=== PATIENT | female | born 1945 | race Caucasian/White ===

== ENCOUNTER 2022-02-28 11:46 | Inpatient (IN) | payer OTHER, MEDICARE ==
--- OUTSIDE RECORDS SUMMARY | 2022-02-28 11:50 | XMS REPORT | Continuity of Care Document ---
:1945 Author Organization [facility] t Address [address] [place] [address] Care Team Providers Name Role Phone REJI HARTLEY Primary Care Physician Unavailable Josefa Torres RN Attending Clinician Unavailable Anu Rodgers Attending Clinician Glenna Cee DO Attending Clinician GLENNA CEE Attending Clinician Unavailable REJI HARTLEY Attending Clinician Unavailable Glenna Cee DO Admitting Clinician GLENNA CEE Admitting Clinician Unavailable REJI HARTLEY Admitting Clinician Unavailable Payers Payer Name Policy Type Policy Number Effective Date Expiration Date S ource Problems Condition Condition Condition Status Onset Resolution Last Treating Co mments Source Name Details Category Date Date Treatment Clinician Date COVID-19 COVID-19 Disease Active Unive rs 1-04 ity of 00:00: [place] 00 Medical Branch Gastroente Gastroente Disease Active 2016-02 U nivers ritis ritis 2-17 ity of 00:00: [place] 00 Medical Branch CAD CAD Disease Active 2016-02 Univers (coronary (coronary 2-17 ity of artery artery 00:00: [place] disease) disease) 00 Medica l Branch LBBB (left LBBB (left Disease Active 2016-02 U nivers bundle bundle 2-17 ity of branch branch 00:00: [place] block) block) 00 Medical Branch Troponin I Troponin I Disease Active 2016-02 U kenyaers above above 2-17 [place] of reference [place] range range 00 [place] Hypokalemi Hypokalemi Disease Active 2016-02 U nivers a a 2-16 ity of 00:00: [place] 00 Medical Branch Allergies, Adverse Reactions, Alerts Allergy Allergy Status Severity Reaction(s) Onset Inactive Treating Comm ents Source Name Type Date Date Clinician Lisa Propensi Active Other - See 2016-02 Hurts Un mikel ty to comments 2-16 stomach ity of adverse 00:00: [place] reaction 00 Medical s Branch CODEINE DRUG Active Other-Cmnt 2016-02 Unive rs INGREDI 2-16 ity of 00:00: [place] 00 Medical Branch Social History Social Habit Start Date Stop Date Quantity Comments Source History SDOH University o f Alcohol Std Drinks [place] [facility] History SDOH University o f Alcohol Binge [place] [facility] al [facility] History SDOH Social Unive rsity of Connections Get [place] Med ical Together Branch History SDOH Social Unive rsity of Connections [facility] [place] [facility] History SDOH Social Unive rsity of Connections [place] [facility] Membership Branch History SDOH Social Unive rsity of Connections [place] [facility] Meetings Branch History SDOH 2022-02-26 2022-02-26 1 University o f Alcohol Frequency 00:00:00 00:00:00 [place] M edical Branch History SDOH Social 2022-02-26 2022-02-26 5 Unive rsity of Connections Phone 00:00:00 00:00:00 [place] M edical Branch History SDOH Social 2022-02-26 2022-02-26 4 Unive rsity of Connections Living 00:00:00 00:00:00 [place] [facility] History SDOH 2022-02-26 2022-02-26 7 University o f Physical Activity 00:00:00 00:00:00 [place] M edical DPW Branch History SDOH 2022-02-26 2022-02-26 2 University o f Physical Activity 00:00:00 00:00:00 [place] M edical MPS Branch History SDOH 2022-02-26 2022-02-26 5 University o f Financial 00:00:00 00:00:00 [place] [facility] History SDOH Food 2022-02-26 2022-02-26 1 Univers ity of Worry 00:00:00 00:00:00 [place] [facility] History SDOH Food 2022-02-26 2022-02-26 1 Univers ity of Scarcity 00:00:00 00:00:00 [place] [facility] History SDOH 2022-02-26 2022-02-26 2 University o f Transport Med 00:00:00 00:00:00 [place] Medic al Branch History SDOH 2022-02-26 2022-02-26 2 University o f Transport Non-Med 00:00:00 00:00:00 [place] M edical Branch Exposure to 2022-02-10 2022-02-20 Not sure [facility] SARS-CoV-2 (event) 00:00:00 16:07:00 [facility] Alcohol intake 2022-02-20 2022-02-20 Current University of 00:00:00 00:00:00 non-drinker of [facility] alcohol Branch (finding) Sex Ass[birth year] Universit y of 00:00:00 00:00:00 [facility] Smoking Status Start Date Stop Date Source Never smoked tobacco [facility] Medications Ordered Filled Start Stop Current Ordering Indication Dosage Frequency Signature Comments Components Source Medication Medication Date Date Medication? Clinician (SIG) Name Name cholecalcif 2022- Yes [id number] 1000U Take 1 Univers anu, 02-27 tablet by ity of vitamin D3, 00:00: 05:59 mouth in [place] 25 mcg 00 :00 the Medical (1,000 morning Branch unit) for 14 tablet days. cholecalcif 2022- Yes [id number] 1000U Take 1 Univers anu, 02-27 tablet by ity of vitamin D3, 00:00: 05:59 mouth in [place] 25 mcg 00 :00 the Medical (1,000 morning Branch unit) for 14 tablet days. JOHNATHON Yes Take by Univers ASPIRIN 1-10 mouth ity of ORAL 13:50: daily. [address] clopidogrel Yes 75mg Take 75 mg Univers 75 mg 1-10 by mouth ity of tablet 13:50: daily. [address] amitriptyli Yes 1 tablet Un mikel ne 25 mg 1-10 ity of tablet 13:50: [address] magnesium Yes 400mg Take 400 Uni vers oxide 400 1-10 mg by ity of mg (241.3 13:50: mouth. [place] mg 49 Medical magnesium) Branch tablet losartan-hy Yes losartan Un mikel drochloroth 1-10 100 ity of iazide 13:50: mg-hydroch [place] 100-25 mg 49 lorothiazi Medi corey per tablet de 25 mg Branc h tablet Take 1 tablet every day by oral route. metoprolol Yes metoprolol U nivers succinate 1-10 succinate ity o f 100 mg CSpX 13:50: ER 100 mg [place] 49 capsule Medical sprinkle, Branch ext. release 24 hr Take 1 capsule every day by oral route. nitroglycer Yes nitroglyce Univers in 0.4 mg 1-10 rin 0.4 mg ity of sublingual 13:50: sublingual [place] tablet [address] Branch TABLET UNDER THE TONGUE NEEDED, DIRECTED KCL 20 mEq Yes potassium Un mikel tablet 1-10 chloride ity of 13:50: ER 20 mEq [place] [id number] tablet,ext Medical ended Branch release(pa rt/cryst) TAKE 2 TABLETS(40 MEQ) BY MOUTH DAILY. levothyroxi Yes levothyrox Univers ne 25 mcg 1-10 ine 25 mcg ity of tablet 13:50: tablet [place] [address] Take 1 Medical tablet Branch every day by oral route for 30 days. lovastatin Yes 1 tablet Uni vers 40 mg 1-10 with a ity of tablet 13:50: meal [address] JOHNATHON Yes Take by Univers ASPIRIN 1-10 mouth ity of ORAL 13:50: daily. [address] clopidogrel Yes 75mg Take 75 mg Univers 75 mg 1-10 by mouth ity of tablet 13:50: daily. [address] amitriptyli Yes 1 tablet Un mikel ne 25 mg 1-10 ity of tablet 13:50: [address] magnesium Yes 400mg Take 400 Uni vers oxide 400 1-10 mg by ity of mg (241.3 13:50: mouth. [place] mg 49 Medical magnesium) Branch tablet losartan-hy Yes losartan Un mikel drochloroth 1-10 100 ity of iazide 13:50: mg-hydroch [place] 100-25 mg 49 lorothiazi Medi corey per tablet de 25 mg Branc h tablet Take 1 tablet every day by oral route. metoprolol Yes metoprolol U nivers succinate 1-10 succinate ity o f 100 mg CSpX 13:50: ER 100 mg [place] 49 capsule Medical sprinkle, Branch ext. release 24 hr Take 1 capsule every day by oral route. nitroglycer Yes nitroglyce Univers in 0.4 mg -10 rin 0.4 mg ity of sublingual 13:50: sublingual [place] tablet [address] 1 Branch TABLET UNDER THE TONGUE NEEDED, DIRECTED KCL 20 mEq Yes potassium Un mikel tablet -10 chloride ity of 13:50: ER 20 mEq [place] 49 tablet,ext Medical ended Branch release(pa rt/cryst) TAKE 2 TABLETS(40 MEQ) BY MOUTH DAILY. levothyroxi Yes levothyrox Univers ne 25 mcg -10 ine 25 mcg ity of tablet 13:50: tablet [place] 49 Take 1 Medical tablet Branch every day by oral route for 30 days. lovastatin Yes 1 tablet Uni vers 40 mg -10 with a ity of tablet 13:50: meal [place] 49 Medical Branch ascorbic 2022- Yes [id number] 500mg Take 1 Univers acid, 02-26-25 tablet by ity of vitamin C, 00:00: 05:59 [place] 500 mg 00 :00 the Medical tablet morning Branch and 1 tablet in the evening. Do all this for 14 days. zinc 2022- Yes [id number] 50mg Take 1 Unive rs sulfate 50 02-26-25 capsule by it y of mg zinc 00:00: 05:59 mouth in [place] (220 mg) 00 :00 the Medical capsule morning Branch for 14 days. ascorbic 2022- Yes [id number] 500mg Take 1 Univers acid, 02-26-25 tablet by ity of vitamin C, 00:00: 05:59 [place] 500 mg 00 :00 the Medical tablet morning Branch and 1 tablet in the evening. Do all this for 14 days. zinc 2022- Yes [id number] 50mg Take 1 Unive rs sulfate 50 -11 17-25 capsule by it y of mg zinc 00:00: 05:59 mouth in [place] (220 mg) 00 :00 the Medical capsule morning Branch for 14 days. KCL 2022-0 2023- No 40meq 40 mEq, Univers (KLOR-CON 02-24- Oral, ity of M20) tablet 16:15: 17:39 ONCE, 1 [place] 40 mEq 00 :00 dose, On Medical 02/24/22 Branch at 1015, Routine melatonin 2022-0 Yes 3mg 3 mg, Univers (MELATIN) 02-24 Oral, QHS, ity of tablet 3 mg 03:00: First dose [place] 00 on [facility] Medical 02/23/22 at Branch 2100, Until Discontinu ed, Routine dexamethaso 2022-0 Yes 6mg 6 mg, IV Un mikel ne sod phos 02-23 Push, ity of PF 13:55: DAILY, [place] injection 6 35 First dose Me dical mg (after Branch last modificati on) on [facility] 02/23/22 at 0900, Until Discontinu ed, 1 mL traZODone 0 Yes 50mg 50 mg, Univer s (DESYREL) 02-23 Oral, QHS, ity of tablet 50 03:00: First dose [place] mg 00 on Fri Medical 02/22/22 at Branch 2100, Until Discontinu ed, Routine amitriptyli 2022-0 Yes 25mg 25 mg, Univ ers ne (ELAVIL) 06 Oral, QHS, it y of tablet 25 03:00: First dose [place] mg 00 on [facility] 02/21/22 at Branch 2100, Until Discontinu ed, Routine proMETHazin 0 Yes 12.5mg 12.5 mg, Univers e 02-21 IV ity of (PHENERGAN) 23:37: Piggyback, [place] 12.5 mg in 38 Q4HPRN, Medica l NaCl 0.9% Starting Branch (NS) 50 mL on [facility] IV 02/21/22 at piggyback 1737, Until Discontinu ed, Routine, N/V unresponsi ve to Ondansetro n losartan 2022-0 Yes 100mg 100 mg, Unive rs (COZAAR) 05 Oral, ity of tablet 100 15:00: DAILY, [place] mg 00 First dose Medical on [facility] Branch 02/21/22 at 0900, Until Discontinu ed, Routine clopidogreL 3-0 Yes 75mg 75 mg, Univ ers (PLAVIX) 75 1-05 Oral, ity of mg tablet 15:00: DAILY, [place] 75 mg 00 First dose Medical on [facility] Branch 02/21/22 at 0900, Until Discontinu ed, Routine cholecalcif 3-0 Yes 1000U 1,000 Univ ers anu 1-05 Units, ity of (vitamin 15:00: Oral, [place] D3) tablet 00 DAILY, Medical 1,000 Units First dose Br anch on [facility] 02/21/22 at 0900, Until Discontinu ed, Routine enoxaparin 2022-0 Yes 40mg 40 mg, Unive rs (LOVENOX) -05 Subcutaneo ity of injection 15:00: us, DAILY, [place] 40 mg 00 First dose Medical (after Branch last modificati on) on [facility] 02/21/22 at 0900, Until Discontinu ed, Routine metoprolol 2022-0 Yes 100mg 100 mg, Uni vers succinate 1-05 Oral, ity of XL (TOPROL 15:00: DAILY, [place] XL) tablet 00 First dose Med ical 100 mg on [facility] Branch 02/21/22 at 0900, Until Discontinu ed hydroCHLORO 2022-0 Yes 25mg 25 mg, Univ ers thiazide 1-05 Oral, ity of (ESIDRIX) 15:00: DAILY, [place] tablet 25 00 First dose Medi corey mg on [facility] Branch 02/21/22 at 0900, Until Discontinu ed, Routine iopamidol 2022-0 2023- No [id number] 100mL 100 mL, Univers (ISOVUE -05 01-05 Intravenou ity o f 370-500 mL) 14:15: 14:15 s, ONCE, 1 [place] injection 00 :00 dose, On Medica l 100 mL [facility] 02/21/22 Branch at 0815, Routine zinc 2022-0 Yes 50mg 50 mg, Univers sulfate 1-05 Oral, TID, ity of (ORAZINC) 14:00: First dose [place] capsule 50 00 on [facility] Medical mg 02/21/22 at Branch 0800, Until Discontinu ed, Routine ascorbic 3-0 Yes 500mg 500 mg, Unive rs acid 1-05 Oral, BID, ity of (vitamin C) 14:00: First dose [place] (VITAMIN C) 00 on [facility] Medica l tablet 500 02/21/22 at Bran ch mg 0800, Until Discontinu ed, Routine KCL 2022-0 2022- No 40meq 40 mEq, Univers (KLOR-CON 02-21-05 Oral, ity of M20) tablet 12:45: 12:49 ONCE, 1 [place] 40 mEq 00 :00 dose, On Medical Fri02/21/22 Branch at 0645, Routine NaCl 0.9% 2022- No 1000mL at 100 Uni vers (NS) IV 02-21-05 mL/hr, IV ity of infusion 12:30: 15:18 Infusion, [place] 1,000 mL 00 :15 ONCE, 1 Medical dose, On Branch Fri02/21/22 at 0630, Routine levothyroxi 0 Yes 25ug 25 mcg, Uni vers ne 05 Oral, ity of (SYNTHROID) 12:00: QAM-0600, [place] tablet 25 00 First dose Medi corey mcg on Fri Branch 02/21/22 at 0600, Until Discontinu ed, Routine guaiFENesin 0 Yes 400mg 400 mg, Un mikel (FENESIN 02-21 Oral, ity of IR) tablet 08:51: Q4HPRN, [place] 400 mg 09 Starting Medical on Fri Branch 02/21/22 at 0251, Until Discontinu ed, Routine, Congestion /Allergies , Cough dexamethaso 2022- No 6mg 6 mg, IV U nivers ne sod phos 02-21-07 Piggyback, i ty of PF 06:45: 13:55 DAILY, [place] injection 6 00 :11 First dose Me dical mg on Fri Branch 02/21/22 at 0045, Until Discontinu ed, 1 mL ondansetron 2022-0 Yes 4mg 4 mg, Slow Univers (ZOFRAN 05 IV Push, ity of (PF)) 04:37: Q6HPRN, [place] injection 4 37 Starting Medi corey mg on Fri02/20/22 at 2237, Until Discontinu ed, Routine, Nausea and Vomiting (N/V) acetaminoph Yes 650mg 650 mg, Un mikel en 05 Oral, ity of (TYLENOL) 04:37: Q6HPRN, [place] tablet 650 25 Starting Medic al mg on Fri Branch 02/20/22 at 2237, Until Discontinu ed, Routine, Pain (scale 1-3) nitroglycer Yes .4mg 0.4 mg, Uni vers in 02-21 Sublingual ity of (NITROSTAT) 04:36: , Q5MIN [place] sublingual 10 PRN, Medical tablet 0.4 Starting Branc h mg on Fri02/20/22 at 2236, Until Discontinu ed, Routine, Chest pain NaCl 0.9% 2022- No 1000mL at 999 Uni vers (NS) bolus 02-20-05 mL/hr, ity of infusion 23:45: 00:03 1,000 mL, [place] 1,000 mL 00 :00 IV Medical Infusion, Branch ONCE, 1 dose, On Fri02/20/22 at 1745, STAT lovastatin 2022- No 40mg Take 40 mg Univers 40 mg 02-20 by mouth ity of tablet 22:38: 00:00 once now. [place] 40 :00 Medical Branch MAGNESIUM 2022- No 400mg Take 400 Un mikel OXIDE 02-20-04 mg by ity of (MAG-OXIDE 22:38: 00:00 mouth [place] ORAL) 40 :00 daily. Medical Branch LEVOTHYROXI No .025mg Take 0.025 Univers NE SODIUM 02-20-04 mg by ity of (LEVOTHYROX 22:38: 00:00 [place] INE ORAL) 40 :00 daily. Medical Branch AMITRIPTYLI 2022- No 25mg Take 25 mg Univers NE HCL 02-20-04 by mouth 3 ity of (AMITRIPTYL 22:38: 00:00 (three) [place] INE ORAL) 40 :00 times Medical daily. Branch metoprolol 2022- No 100mg Take 100 U nivers tartrate 02-20-04 mg by ity of 100 mg 22:38: 00:00 mouth 2 [place] tablet 40 :00 (two) Medical times Branch daily. KCL 20 mEq 2022- No 1 tablet Un mikel tablet 1-04 02-20 ity of 22:38: 00:00 [place] 40 :00 [facility] Immunizations Ordered Filled Immunization Date Status Comments [facility]ourc e [facility] Completed University of 00:00:00 [facility] Branch Remdesivir 2022-02-25 Completed [facility] [place] [facility] Com[facility] 00[facility]00:00 [facility] [place] [facility] 2022-02-23 [facility] [place] [facility] 2022-02-22 Completed [facility] 00:00[facility]00 [facility] [place] [facility] 2022-02-22 Completed [facility] 00:00[facility]00 [facility] [place] [facility] 2022-02-21 Completed University [facility] 00:00[facility]00 [facility] [place] [facility] 2022-02-21 Completed University of 00:00:00 [facility] Vital Signs Vital Name Observation Time Observation Value Comments Source Systolic blood 2022-02-26 18:00:00 118 mm[Hg] [facility] Diastolic blood 2022-02-26 18:00:00 60 mm[Hg] [facility] Heart rate 2022-02-26 18:00:00 62 /min [facility] Body temperature 2022-02-26 18:00:00 36.83 Ira[place] [facility] Respiratory rate 2022-02-26 18:00:00 16 /min [facility] Oxygen saturation in 2022-02-26 18:00:00 93 /min [facility] Arterial blood by [facility] Pulse oximetry Branch Body weight 2022-02-25 10:00:00 74.481 kg [facility] BMI 2022-02-25 10:00:00 29.09 kg/m2 [facility] Procedures Procedure Date / Time Performing Clinician Source Performed BASIC METABOLIC PANEL 2022-02-26 10:56:00 [facility] (NA, K, CL, CO2, GLUCOSE, Medica l Branch BUN, CREATININE, CA) URINALYSIS 2022-02-24 22:45:00 Meryl [facility] URINE CULTURE 2022-02-24 22:45:00 Meryl [facility] BASIC METABOLIC PANEL 2022-02-23 11:16:00 Glenna Cee [facility] (NA, K, CL, CO2, GLUCOSE, Medica l Branch BUN, CREATININE, CA) CBC WITH DIFF 2022-02-23 11:16:00 Glenna Cee [facility] MAGNESIUM 2022-02-22 10:17:00 Meryl [facility] BASIC METABOLIC PANEL 2022-02-22 10:17:00 Glenna Cee [facility] (NA, K, CL, CO2, GLUCOSE, Medica l Branch BUN, CREATININE, CA) CT ANGIOGRAM CHEST 2022-02-21 13:21:00 [facility] 2022[facility]02-21 10:[facility] 2022-02-21 10:14:00 [facility] TROPONIN I 2022-02-21 10:10:00 [facility] BASIC METABOLIC PANEL 2022-02-21 10:10:00 [facility] (NA, K, CL, CO2, GLUCOSE, Medica l Branch BUN, CREATININE, CA) CBC WITH DIFF 2022-02-21 10:10:00 [facility] D-DIMER 2022-02-21 10:10:00 [facility] CLOSTRIDIUM DIFFICILE 2022-02-21 10:10:00 [facility] BLOOD CULTURE SCREEN 2022-02-20 23:10:00 Anu [facility] XR CHEST 1 VW 2022-02-20 22:52:53 Anu Earl [facility] RAPID INFLUENZA A/B 2022-02-20 22:40:00 Anu Earl [facility] COVID-19 (ID NOW RAPID 2022-02-20 22:40:00 Anu Earl [facility] TESTING) Medical Branch LAB ONLY COVID 2022-02-20 22:40:00 Anu Earl [facility] INTERPRETATION [facility] BLOOD CULTURE SCREEN 2022-02-20 22:38:00 Anu Earl [facility] COMP. METABOLIC PANEL 2022-02-20 22:38:00 Anu Earl [facility] ([id number]) Medical Branch CBC WITH DIFF 2022-02-20 22:38:00 Anu Earl [facility] BLOOD CULTURE WORKUP 2022-02-20 22:38:00 Anu Earl [facility] GRAM POSITIVE BLOOD 2022-02-20 22:38:00 Anu Earl [facility] PATHOGENS DNA [facility] Branch PROBE-ANAEROBIC LACTIC ACID WHOLE BLOOD 2022-02-20 22:37:00 Anu Earl [facility] HB ECG ROUTINE & RHYTHM 2022-02-20 22:19:[address] [facility] NOTICE OF PRIVACY 2022-02-20 22:09:04 Doctor Unassigned, [facility] PRACTICES [place] [facility] Encounters Start End Encounter Admission Attending Care Care Encounter Source Date/Time Date/Time Type Type Clinicians Facility Department ID 2022-02-27 2022-02-27 Transition FLEX Torres [id number] Univers 00:00:00 00:00:00 of Care Josefa MADERAY [id number] it y of ALEXANDRA [id number] [facility] [id number] [facility] 403 Branch 2022-02-20 2022-02-26 Hospital Anu Earl [facility] [id number] Univers 16:13:00 13:50:00 Encounter Glenna Cee [id number] ity of YADIRA [id number] [facility] [id number] [place] [id number] Branch 2022-02-20 2022-02-26 Inpatient X [facility]L [facility] [id number] Univers 16:13:00 13:50:00 GLENNA killian [facility] 2016-09-13 2016-09-13 Outpatient [facility] [id number] 05:35:00 05:35:00 [facility] Results Test Description Test Time Test Comments Results Result Comments Source BLOOD CULTURE SCREEN 2022-02-26 02:51:21 Test Item Value Reference Range Interpretation Comme nts Blood Culture-Aerobic (test No organisms isolated No growth Previous preliminary code = 36370-7) verified res ult was Culture In Prog ress on 02/20/2022 at 200 1 CSTPrevious pre liminary verified result was No growth at 24 ho urs on 02/21/2022 at 170 1 CSTPrevious pre liminary verified result was Culture In Prog ress on 02/21/2022 at 180 4 ECONOMICS DEPARTMENT CHAIR Blood Culture-Anaerobic Culture positive. See No growth AA Previous preliminary (test code = 40143-8) Blood Culture Workup verified result was for additional Culture In Pr ogress on information. 02/20/2022 at 200 1 CSTPrevious pre liminary verified result was No growth at 24 ho urs on 02/21/2022 at 170 1 ECONOMICS DEPARTMENT CHAIR Lab Interpretation (test Abnormal code = 75217-1) [facility] [id number] 00:01:47 Test Item Value Reference Range Interpretation Comments Blood Culture-Aerobic No organisms No growth Previo us (test code = 55360-2) isolated prelim inary verified result was Culture In Progress on 02/20/2022 at 210 1 CSTPrevious preliminary verified result was No growth a t 24 hours on 02/21/2022 at 180 1 CSTPrevious preliminary verified result was No growth a t 48 hours on 02/22/2022 at 180 1 CSTPrevious preliminary verified result was No growth a t 72 hours on 02/23/2022 at 180 1 ECONOMICS DEPARTMENT CHAIR Blood No organisms No growth Previous Culture-Anaerobic isolated preliminar y (test code = 75116-1) verifi ed result was Culture In Progress on 02/20/2022 at 210 1 CSTPrevious preliminary verified result was No growth a t 24 hours on 02/21/2022 at 180 1 CSTPrevious preliminary verified result was No growth a t 48 hours on 02/22/2022 at 180 1 CSTPrevious preliminary verified result was No growth a t 72 hours on 02/23/2022 at 180 1 ECONOMICS DEPARTMENT CHAIR Lab Interpretation Normal (test code = 63705-4) [facility] PATHOGENS DNA [id number] 12:03:26 Test Item Value Reference Range Interpretation Comments Coagulase Negative Positive Negative, See A Staphylococcus (test Comment/Narrative code = 99673-6) PARRIS (test code = PARRIS) Coagulase negative Staphylococcus (CoNS) detected by DNA probe. ?CoNS often contaminate blood cultures from skin colonization during phlebotomy. ?Preferred management is to repeat blood cultures, and monitor off antibiotics. ?Contamination is suggested by culture growth after 48 hours, or growth in single culture (i.e., one of two sets). ?True bacteremia is suggested by the fever, hypotension, and leukocytosis that are not explained by an alternative infection, or indwelling foreign devices that appear infected (catheters, lines, or prostheses). Consider Infectious Diseases consultation if differentiation of CoNS bacteremia from contamination is uncertain. If clinical context suggests true bacteremia, preferred therapy is vancomycin. Please contact the Antimicrobial Stewardship Program with questions.Pager: ?[phone] Testing included eleven identification and three resistance marker targets. Lab Interpretation Abnormal (test code = 80538-6) [facility]OLIC PANEL ([id number])2022-02-20 23:02:28 Test Item Value Reference Range Interpretation Comments NA (test code = 136 mmol/L 135-145 5846861558) K (test code = 3.6 mmol/L 3.5-5.0 8216285523) CL (test code = 100 mmol/L 98-108 4576332204) CO2 TOTAL (test code = 25 mmol/L 23-31 6132581820) AGAP (test code = 2-16 3611006992) BUN (test code = 16 mg/dL 7-23 5136273587) GLUCOSE (test code = 126 mg/dL 70-110 H 2388434912) CREATININE (test code = 1.24 mg/dL 0.50-1.04 H 7529442840) TOTAL BILI (test code = 0.6 mg/dL 0.1-1.7 4875308848) CALCIUM (test code = 9.0 mg/dL 8.6-10.6 4733837639) T PROTEIN (test code = 7.4 g/dL 6.3-8.2 7412338293) ALBUMIN (test code = 4.5 g/dL 3.5-5.0 6690542296) ALK PHOS (test code = 95 U/L 34-122 5961774111) ALTv (test code = 31 U/L 5-35 1742-6) AST(SGOT) (test code = 56 U/L 13-40 H 6196775183) eGFR (test code = mL/min/1.73m2 5018700214) PARRIS (test code = PARRIS) Association of Glomerular Filtration Rate (GFR) and Staging of Kidney Disease* + --+ --+ ------+| GFR (mL/min/1.73 m2) ?| With Kidney Damage ?| ?Without Kidney Damage+ --------+ --------+ +| ?>90 ?| ?Stage one ?| ? Normal ?+ ---+ ---+ -------+| ?60-89 ?| ?Stage two ?| ? Decreased GFR ? + --+ --+ ------+| ?30-59 ?| ?Stage three ?| ? Stage three ? + --+ --+ ------+| ?15-29 ?| ?Stage four ? | ? Stage four ?+ ---+ ---+ -------+| ?<15 (or dialysis) ? ?| ?Stage five ? | ? Stage five ?+ ---+ ---+ -------+ *Each stage assumes the associated GFR level has been in effect for at least three months. ?Stages 1 to 5, with or without kidney disease, indicate chronic kidney disease. Notes: Determination of stages one and two (with eGFR >59mL/min/1.73 m2) requires estimation of kidney damage for at least three months as defined by structural or functional abnormalities of the kidney, manifested by either:Pathological abnormalities or Markers of kidney damage (including abnormalities in the composition of the blood or urine or abnormalities in imaging tests). Lab Interpretation Abnormal (test code = 31924-6) [facility] WITH [id number] 22:58:07 Test Item Value Reference Range Interpretation Comments WBC (test code = See_Comment [Automated 6690-2) message] The sy stem which generated this result transmitted reference range : 4.30 - 11.10 10*3/?L. The reference range was not used to interpret this result as normal/abnormal . RBC (test code = See_Comment L [Automated 789-8) message] The sy stem which generated this result transmitted reference range : 3.93 - 5.25 10*6/?L. The reference range was not used to interpret this result as normal/abnormal . HGB (test code = 12.4 g/dL 11.6-15.0 718-7) HCT (test code = 37.6 % 35.7-45.2 4544-3) MCV (test code = 96.7 fL 80.6-95.5 H 787-2) MCH (test code = 31.9 pg 25.9-32.8 785-6) MCHC (test code = 33.0 g/dL 31.6-35.1 786-4) RDW-SD (test code = 48.5 fL 39.0-49.9 16133-8) RDW-CV (test code = 13.6 % 12.0-15.5 788-0) PLT (test code = See_Comment [Automated 777-3) message] The sy stem which generated this result transmitted reference range : 166 - 358 10*3/ ?L. The reference r teresa was not used to interpret this result as normal/abnormal . MPV (test code = 8.3 fL 9.5-12.9 L 41594-4) NRBC/100 WBC (test See_Comment [Automat ed code = [id number]) message] The system which generated this result transmitted reference range : 0.0 - 10.0 /100 WBCs. The refer ence range was not u sed to interpret th is result as normal/abnormal . NRBC x10^3 (test code See_Comment [Auto mated = [id number]) message] The s ystem which generated this result transmitted reference range : 10*3/?L. The reference range was not used to interpret this result as normal/abnormal . GRAN MAT (NEUT) % 64.0 % (test code = 770-8) IMM GRAN % (test code 0.40 % = [id number]) LYMPH % (test code = 21.4 % 736-9) MONO % (test code = 13.2 % 5905-5) EOS % (test code = 0.4 % 713-8) BASO % (test code = 0.6 % 706-2) GRAN MAT x10^3(ANC) 3.29 10*3/uL 1.88-7.09 (test code = [id number]) IMM GRAN x10^3 (test 0.00-0.06 code = 8599042727) LYMPH x10^3 (test code 1.10 10*3/uL 1.32-3.29 L = 731-0) MONO x10^3 (test code 0.68 10*3/uL 0.33-0.92 = 742-7) EOS x10^3 (test code = 0.03-0.39 L 711-2) BASO x10^3 (test code 0.03 10*3/uL 0.01-0.07 = 704-7) Lab Interpretation Abnormal (test code = 75873-1) [facility] [id number] 10:58:48 Test Item Value Reference Range Interpretation Comments Sodium Level (test code = Sodium 142.0 mmol/L 135.0-145.0 Level) Potassium Level (test code = 3.3 mmol/L 3.5-5.1 L Potassium Level) Chloride Level (test code = 100 mmol/L 98-105 Chloride Level) CO2 (test code = CO2) 27 mmol/L 22-29 Anion Gap (test code = Anion 15 mmol/L 7-16 Gap) BUN (test code = BUN) 17.20 mg/dL 8.00-23.00 Creatinine Level (test code = 1.00 mg/dL 0.50-0.90 H Creatinine Level) BUN/Creat Ratio (test code = 17 N BUN/Creat Ratio) Glucose Level (test code = 101 mg/dL 70-115 Glucose Level) Calcium Level (test code = 9.6 mg/dL 8.3-10.5 Calcium Level) Alk Phos (test code = Alk Phos) 126 U/L 35-104 H Bilirubin Total (test code = 0.4 mg/dL 0.1-0.9 Bilirubin Total) Albumin Level (test code = 4.5 g/dL 3.5-5.2 Albumin Level) Protein Total (test code = 7.9 g/dL 6.4-8.3 Protein Total) ALT (test code = ALT) 27 U/L 1-33 AST (test code = AST) 37 U/L 1-32 H Globulin (test code = Globulin) 3.4 g/dL 2.9-3.1 H A/G Ratio (test code = A/G 1.3 ratio N Ratio) Comprehensive Metabolic [id number] 10:58:48 Test Item Value Reference Range Interpretation Comments Sodium Level (test 142.0 mmol/L 135.0-145.0 code = Sodium Level) Potassium Level 3.3 mmol/L 3.5-5.1 L (test code = Potassium Level) Chloride Level (test 100 mmol/L 98-105 code = Chloride Level) CO2 (test code = 27 mmol/L 22-29 CO2) Anion Gap (test code 15 mmol/L 7-16 = Anion Gap) BUN (test code = 17.20 mg/dL 8.00-23.00 BUN) Creatinine Level 1.00 mg/dL 0.50-0.90 H (test code = Creatinine Level) BUN/Creat Ratio 17 N (test code = BUN/Creat Ratio) Glucose Level (test 101 mg/dL 70-115 code = Glucose Level) Calcium Level (test 9.6 mg/dL 8.3-10.5 code = Calcium Level) Alk Phos (test code 126 U/L 35-104 H = Alk Phos) Bilirubin Total 0.4 mg/dL 0.1-0.9 (test code = Bilirubin Total) Albumin Level (test 4.5 g/dL 3.5-5.2 code = Albumin Level) Protein Total (test 7.9 g/dL 6.4-8.3 code = Protein Total) ALT (test code = 27 U/L 1-33 ALT) AST (test code = 37 U/L 1-32 H AST) Globulin (test code 3.4 g/dL 2.9-3.1 H = Globulin) A/G Ratio (test code 1.3 ratio N = A/G Ratio) eGFR AA (test code = >60 N eGFR (e stimated eGFR AA) mL/min/1.73 m2 Glomerular Filtration Rate ) is an estimated va lue, calculated from the patient's serum creatinine usin g the MDRD equation. It is NOT the patient 's actual GFR. The eGFR provides a more clinically usef ul measure of kidn ey disease than se rum creatinine alone.This calculation nila es sex and race in to account, if the information is provided. If th e race is not provided, and t he patient is -Maia n, multiply by 1.2 12. If sex is not provided, and t he patient is fema le, multiply by 0.7 42. Results for pat ients <18 years of ag e have not been validated by th e MDRD study and should be interpreted wit h caution. eGFR R esult Interpretation: eGFR > or = 60 is in the Normal RangeeGF R < 60 may mean kid andrew diseaseeGFR < 1 5 may mean kidney failure Rang es recommended by the National Kidney Foundation, http://nkdep.ni h.gov Comprehensive Metabolic [id number] 10:58:48 Test Item Value Reference Range Interpretation Comments Sodium Level (test 142.0 mmol/L 135.0-145.0 code = Sodium Level) Potassium Level 3.3 mmol/L 3.5-5.1 L (test code = Potassium Level) Chloride Level (test 100 mmol/L 98-105 code = Chloride Level) CO2 (test code = 27 mmol/L 22-29 CO2) Anion Gap (test code 15 mmol/L 7-16 = Anion Gap) BUN (test code = 17.20 mg/dL 8.00-23.00 BUN) Creatinine Level 1.00 mg/dL 0.50-0.90 H (test code = Creatinine Level) BUN/Creat Ratio 17 N (test code = BUN/Creat Ratio) Glucose Level (test 101 mg/dL 70-115 code = Glucose Level) Calcium Level (test 9.6 mg/dL 8.3-10.5 code = Calcium Level) Alk Phos (test code 126 U/L 35-104 H = Alk Phos) Bilirubin Total 0.4 mg/dL 0.1-0.9 (test code = Bilirubin Total) Albumin Level (test 4.5 g/dL 3.5-5.2 code = Albumin Level) Protein Total (test 7.9 g/dL 6.4-8.3 code = Protein Total) ALT (test code = 27 U/L 1-33 ALT) AST (test code = 37 U/L 1-32 H AST) Globulin (test code 3.4 g/dL 2.9-3.1 H = Globulin) A/G Ratio (test code 1.3 ratio N = A/G Ratio) eGFR AA (test code = >60 N eGFR (e stimated eGFR AA) mL/min/1.73 m2 Glomerular Filtration Rate ) is an estimated va lue, calculated from the patient's serum creatinine usin g the MDRD equation. It is NOT the patient 's actual GFR. The eGFR provides a more clinically usef ul measure of kidn ey disease than se rum creatinine alone.This calculation nila es sex and race in to account, if the information is provided. If th e race is not provided, and t he patient is -Maia n, multiply by 1.2 12. If sex is not provided, and t he patient is fema le, multiply by 0.7 42. Results for pat ients <18 years of ag e have not been validated by th e MDRD study and should be interpreted wit h caution. eGFR R esult Interpretation: eGFR > or = 60 is in the Normal RangeeGF R < 60 may mean kid andrew diseaseeGFR < 1 5 may mean kidney failure Rang es recommended by the National Kidney Foundation, http://nkdep.ni h.gov eGFR Non-AA (test 54.05 N eGFR (maddison mated code = eGFR Non-AA) mL/min/1.73 m2 Glomer ular Filtration Rate ) is an estimated va lue, calculated from the patient's serum creatinine usin g the MDRD equation. It is NOT the patient 's actual GFR. The eGFR provides a more clinically usef ul measure of kidn ey disease than se rum creatinine alone.This calculation nila es sex and race in to account, if the information is provided. If th e race is not provided, and t he patient is -Maia n, multiply by 1.2 12. If sex is not provided, and t he patient is fema le, multiply by 0.7 42. Results for pat ients <18 years of ag e have not been validated by e MDRD study and should be interpreted wit h caution. eGFR R esult Interpretation: eGFR > or = 60 is in the Normal RangeeGF R < 60 may mean kid andrew diseaseeGFR < 1 5 may mean kidney failure Rang es recommended by the National Kidney Foundation, http://nkdep.ni h.gov Complete Blood Count with [id number] 08:43:33 Test Item Value Reference Range Interpretation Comments WBC (test code = WBC) 5.5 x10 4.4-10.5 RBC (test code = RBC) 3.90 x10 3.75-5.20 Hgb (test code = Hgb) 12.3 g/dL 12.2-14.8 MCV (test code = MCV) 94.60 fL 80.00-100.00 Hct (test code = Hct) 36.9 % 36.5-44.4 MCHC (test code = 33.30 g/dL 32.00-37.50 MCHC) RDW CV (test code = 13.2 % 11.5-14.5 RDW CV) MCH (test code = MCH) 31.5 pg 27.0-32.5 Platelets (test code = 212.0 x10 140.0-440.0 Platelets) MPV (test code = MPV) 8.3 fL N Slide Review (test Auto Auto Result cr eated by code = Slide Review) GL_SJM_ SLIDE_REV_AUTO nRBC (test code = 0 N nRBC) NRBC Abs (test code = 0.00 x10 N NRBC Abs) IPF (test code = IPF) 0 % N Prothrombin Time and [id number] 08:43:33 Test Item Value Reference Range Interpretation Comments Prothrombin Time (test code = 11.4 seconds 9.8-13.4 Prothrombin Time) INR (test code = INR) 1.0 ratio 0.6-1.2 Partial Thromboplastin [id number] 08:43:33 Test Item Value Reference Range Interpretation Comments Partial Thromboplastin Time 51.30 seconds 24.39-37.25 H (test code = Partial Thromboplastin Time) Automated [id number] 08:43:33 Test Item Value Reference Range Interpretation Comments Neutro Auto (test code = Neutro 45.3 % 36.0-70.0 Auto) Lymph Auto (test code = Lymph Auto) 40.2 % 12.0-44.0 Sullivan Auto (test code = Sullivan Auto) 8.5 % 0.0-11.0 Eos, Auto (test code = Eos, Auto) 5.1 % 0.0-7.0 Basophil Auto (test code = Basophil 0.7 % 0.0-2.0 Auto) Neutro Absolute (test code = Neutro 2.5 x10 1.6-7.4 Absolute) Lymph Absolute (test code = Lymph 2.22 x10 .50-4.60 Absolute) Sullivan Absolute (test code = Sullivan .47 x10 .00-1.20 Absolute) Eos Absolute (test code = Eos 0.28 x10 0.00-0.74 Absolute) Baso Absolute (test code = Baso 0.04 x10 0.00-0.21 Absolute) IG [id number] 08:43:33 Test Item Value Reference Range Interpretation Comments IG (test code = IG) 0.2 % 0.0-5.0 IG Abs (test code = IG Abs) 0 x10 N Prothrombin Time and [id number] 09:10:51 Test Item Value Reference Range Interpretation Comments Prothrombin Time (test code = 11.0 seconds 9.8-13.4 Prothrombin Time) INR (test code = INR) 1.0 ratio 0.6-1.2 Partial Thromboplastin [id number] 09:10:51 Test Item Value Reference Range Interpretation Comments Partial Thromboplastin Time 45.00 seconds 24.39-37.25 H (test code = Partial Thromboplastin Time) Comprehensive Metabolic [id number] 08:40:00 Test Item Value Reference Range Interpretation Comments Sodium Level (test code = Sodium 144.0 mmol/L 135.0-145.0 Level) Potassium Level (test code = 3.8 mmol/L 3.5-5.1 Potassium Level) Chloride Level (test code = 103 mmol/L 98-105 Chloride Level) CO2 (test code = CO2) 31 mmol/L 22-29 H Anion Gap (test code = Anion 10 mmol/L 7-16 Gap) BUN (test code = BUN) 15.60 mg/dL 8.00-23.00 Creatinine Level (test code = 0.90 mg/dL 0.50-0.90 Creatinine Level) BUN/Creat Ratio (test code = 17 N BUN/Creat Ratio) Glucose Level (test code = 102 mg/dL 70-115 Glucose Level) Calcium Level (test code = 9.7 mg/dL 8.3-10.5 Calcium Level) Alk Phos (test code = Alk Phos) 127 U/L 35-104 H Bilirubin Total (test code = 0.4 mg/dL 0.1-0.9 Bilirubin Total) Albumin Level (test code = 4.2 g/dL 3.5-5.2 Albumin Level) Protein Total (test code = 7.0 g/dL 6.4-8.3 Protein Total) ALT (test code = ALT) 34 U/L 1-33 H AST (test code = AST) 42 U/L 1-32 H Globulin (test code = Globulin) 2.8 g/dL 2.9-3.1 L A/G Ratio (test code = A/G 1.5 ratio N Ratio) Comprehensive Metabolic [id number] 08:40:00 Test Item Value Reference Range Interpretation Comments Sodium Level (test 144.0 mmol/L 135.0-145.0 code = Sodium Level) Potassium Level 3.8 mmol/L 3.5-5.1 (test code = Potassium Level) Chloride Level (test 103 mmol/L 98-105 code = Chloride Level) CO2 (test code = 31 mmol/L 22-29 H CO2) Anion Gap (test code 10 mmol/L 7-16 = Anion Gap) BUN (test code = 15.60 mg/dL 8.00-23.00 BUN) Creatinine Level 0.90 mg/dL 0.50-0.90 (test code = Creatinine Level) BUN/Creat Ratio 17 N (test code = BUN/Creat Ratio) Glucose Level (test 102 mg/dL 70-115 code = Glucose Level) Calcium Level (test 9.7 mg/dL 8.3-10.5 code = Calcium Level) Alk Phos (test code 127 U/L 35-104 H = Alk Phos) Bilirubin Total 0.4 mg/dL 0.1-0.9 (test code = Bilirubin Total) Albumin Level (test 4.2 g/dL 3.5-5.2 code = Albumin Level) Protein Total (test 7.0 g/dL 6.4-8.3 code = Protein Total) ALT (test code = 34 U/L 1-33 H ALT) AST (test code = 42 U/L 1-32 H AST) Globulin (test code 2.8 g/dL 2.9-3.1 L = Globulin) A/G Ratio (test code 1.5 ratio N = A/G Ratio) eGFR AA (test code = >60 N eGFR (e stimated eGFR AA) mL/min/1.73 m2 Glomerular Filtration Rate ) is an estimated va lue, calculated from the patient's serum creatinine usin g the MDRD equation. It is NOT the patient 's actual GFR. The eGFR provides a more clinically usef ul measure of kidn ey disease than se rum creatinine alone.This calculation nila es sex and race in to account, if the information is provided. If th e race is not provided, and t he patient is -Maia n, multiply by 1.2 12. If sex is not provided, and t he patient is fema le, multiply by 0.7 42. Results for pat ients <18 years of ag e have not been validated by th e MDRD study and should be interpreted wit h caution. eGFR R esult Interpretation: eGFR > or = 60 is in the Normal RangeeGF R < 60 may mean kid andrew diseaseeGFR < 1 5 may mean kidney failure Rang es recommended by the National Kidney Foundation, http://nkdep.ni h.gov Comprehensive Metabolic [id number] 08:40:00 Test Item Value Reference Range Interpretation Comments Sodium Level (test 144.0 mmol/L 135.0-145.0 code = Sodium Level) Potassium Level 3.8 mmol/L 3.5-5.1 (test code = Potassium Level) Chloride Level (test 103 mmol/L 98-105 code = Chloride Level) CO2 (test code = 31 mmol/L 22-29 H CO2) Anion Gap (test code 10 mmol/L 7-16 = Anion Gap) BUN (test code = 15.60 mg/dL 8.00-23.00 BUN) Creatinine Level 0.90 mg/dL 0.50-0.90 (test code = Creatinine Level) BUN/Creat Ratio 17 N (test code = BUN/Creat Ratio) Glucose Level (test 102 mg/dL 70-115 code = Glucose Level) Calcium Level (test 9.7 mg/dL 8.3-10.5 code = Calcium Level) Alk Phos (test code 127 U/L 35-104 H = Alk Phos) Bilirubin Total 0.4 mg/dL 0.1-0.9 (test code = Bilirubin Total) Albumin Level (test 4.2 g/dL 3.5-5.2 code = Albumin Level) Protein Total (test 7.0 g/dL 6.4-8.3 code = Protein Total) ALT (test code = 34 U/L 1-33 H ALT) AST (test code = 42 U/L 1-32 H AST) Globulin (test code 2.8 g/dL 2.9-3.1 L = Globulin) A/G Ratio (test code 1.5 ratio N = A/G Ratio) eGFR AA (test code = >60 N eGFR (e stimated eGFR AA) mL/min/1.73 m2 Glomerular Filtration Rate ) is an estimated va lue, calculated from the patient's serum creatinine usin g the MDRD equation. It is NOT the patient 's actual GFR. The eGFR provides a more clinically usef ul measure of kidn ey disease than se rum creatinine alone.This calculation nila es sex and race in to account, if the information is provided. If th e race is not provided, and t he patient is -Maia n, multiply by 1.2 12. If sex is not provided, and t he patient is fema le, multiply by 0.7 42. Results for pat ients <18 years of ag e have not been validated by th e MDRD study and should be interpreted wit h caution. eGFR R esult Interpretation: eGFR > or = 60 is in the Normal RangeeGF R < 60 may mean kid andrew diseaseeGFR < 1 5 may mean kidney failure Rang es recommended by the National Kidney Foundation, http://nkdep.ni h.gov eGFR Non-AA (test >60.00 N eGFR (maddison mated code = eGFR Non-AA) mL/min/1.73 m2 Glomer ular Filtration Rate ) is an estimated va lue, calculated from the patient's serum creatinine usin g the MDRD equation. It is NOT the patient 's actual GFR. The eGFR provides a more clinically usef ul measure of kidn ey disease than se rum creatinine alone.This calculation nila es sex and race in to account, if the information is provided. If th e race is not provided, and t he patient is -Maia n, multiply by 1.2 12. If sex is not provided, and t he patient is fema le, multiply by 0.7 42. Results for pat ients <18 years of ag e have not been validated by th e MDRD study and should be interpreted wit h caution. eGFR R esult Interpretation: eGFR > or = 60 is in the Normal RangeeGF R < 60 may mean kid andrew diseaseeGFR < 1 5 may mean kidney failure Rang es recommended by the National Kidney Foundation, http://nkdep.ni h.gov IG [id number] 08:24:06 Test Item Value Reference Range Interpretation Comments IG (test code = IG) 0.3 % 0.0-5.0 IG Abs (test code = IG Abs) 0 x10 N Complete Blood Count with [id number] 08:24:05 Test Item Value Reference Range Interpretation Comments WBC (test code = WBC) 6.6 x10 4.4-10.5 RBC (test code = RBC) 3.60 x10 3.75-5.20 L Hgb (test code = Hgb) 11.4 g/dL 12.2-14.8 L MCV (test code = MCV) 95.60 fL 80.00-100.00 Hct (test code = Hct) 34.4 % 36.5-44.4 L MCHC (test code = 33.10 g/dL 32.00-37.50 MCHC) RDW CV (test code = 13.2 % 11.5-14.5 RDW CV) MCH (test code = MCH) 31.7 pg 27.0-32.5 Platelets (test code = 200.0 x10 140.0-440.0 Platelets) MPV (test code = MPV) 8.3 fL N Slide Review (test Auto Auto Result cr eated by code = Slide Review) GL_SJM_ SLIDE_REV_AUTO nRBC (test code = 0 N nRBC) NRBC Abs (test code = 0.00 x10 N NRBC Abs) IPF (test code = IPF) 0 % N Automated [id number] 08:24:05 Test Item Value Reference Range Interpretation Comments Neutro Auto (test code = Neutro 46.7 % 36.0-70.0 Auto) Lymph Auto (test code = Lymph Auto) 34.9 % 12.0-44.0 Sullivan Auto (test code = Sullivan Auto) 8.5 % 0.0-11.0 Eos, Auto (test code = Eos, Auto) 8.8 % 0.0-7.0 H Basophil Auto (test code = Basophil 0.8 % 0.0-2.0 Auto) Neutro Absolute (test code = Neutro 3.1 x10 1.6-7.4 Absolute) Lymph Absolute (test code = Lymph 2.30 x10 .50-4.60 Absolute) Sullivan Absolute (test code = Sullivan .56 x10 .00-1.20 Absolute) Eos Absolute (test code = Eos 0.58 x10 0.00-0.74 Absolute) Baso Absolute (test code = Baso 0.05 x10 0.00-0.21 Absolute) Lipid [id number] 22:12:49 Test Item Value Reference Range Interpretation Comments Cholesterol Total 177 mg/dL 0-200 RISK OF HE ART (test code = DISEASEPublishe d by Cholesterol Total) [employer] Irma lyte Optimal Borderl ine Increased RiskC HOL <200 200-239 >240TRI G <150 150-199 >200HDL Male >60 <40HDL Fema le >60 <50LDL <100 130 -159 >160LDL Near op timal is 100-129 Triglycerides (test 148 mg/dL 9-200 code = Triglycerides) HDL (test code = HDL) 51 mg/dL 50-60 LDL (test code = LDL) 96 mg/dL 0-130 The eq uation being used in this calcula tion is LDL = (Chol - H DL) - (Trig / 5) VLDL (test code = 30 mg/dL 5-40 The equati on being used VLDL) in this calcula tion is VLDL = Trig / 5 Chol/HDL (test code = 3.5 ratio 0.0-4.4 Chol/HDL) LDL/HDL Ratio (test 2 N The equa tion being used code = LDL/HDL Ratio) in thi s calculation is LDL/HDL Ratio=L DL Calc/HDL Chol Lipid [id number] 21:18:00 Test Item Value Reference Range Interpretation Comments Cholesterol (test 199 mg/dL 0-200 N code = CHOL) Triglycerides (test 175 mg/dL 9-200 N code = TRIG) HDL (test code = 59 mg/dL 50-60 N HDL) Chol/HDL (test code 3.4 Ratio 0.0-4.4 N = CHOLPHDL) LDL, Calculated 105 mg/dL 0-130 N (NOTE)RISK O F HEART (test code = LDLC) DISEASEPu blished by Stateless Heart AssociationAnal yte Optimal Boderli ne Increased RiskC HOL <200 200-239 >240TRI G <150 150-199 >200HDL Male: >60 <40HDL Fema le: >60 <50LDL <100 130 -159 >160LDL NEAR OP TIMAL IS 100-129 VLDL (test code = 35 mg/dL 5-40 N VLDL) LDL/HDL (test code = 2 LDLPHDL)"
[2022-02-28 12:38] LABS: Absolute Lymphocytes (CBC) 0.3 K/uL (0.7-4.9); Hematocrit 41.5 % (36.0-45.0); Lymphocytes % 3.1 % (15.3-44.8); MCV 92.2 fL (80-100)
--- NOTE | 2022-02-28 12:44 | RAD REPORT ---
EXAM DESCRIPTION: RAD - Chest Single View - 02/28/2022 12:35 pm CLINICAL HISTORY: DYSPNEA COMPARISON: CHEST SINGLE VIEW dated 07/12/2011 FINDINGS: Lines: Loop recorder. Lungs: No evidence of edema or pneumonia. Pleural: No significant pleural effusions or pneumothorax. Cardiac: The heart size is within normal limits. Mediastinum: Within normal limits. Bones: No acute fractures. Other: None IMPRESSION: No acute cardiopulmonary disease.
[2022-02-28] MEDS ORDERED: NA CHLORIDE 0.9% 1,000 ML ONE ×2 (13:15→14:24)
[2022-02-28 13:20] LABS: Protime INR 1.28
[2022-02-28 13:30] LABS: Albumin 2.8 g/dL (3.4-5.0); Bilirubin Total 1.4 mg/dL (0.2-1.0)
[2022-02-28 13:32] LABS: Potassium 2.9 mmol/L (3.5-5.1)
[2022-02-28 13:44] LABS: Blood Morphology Comment NOT SEEN (NOT SEEN); Platelet Estimate ADEQ; White Blood Cell Scan OK (OK)
[2022-02-28] MEDS ORDERED: POTASSIUM CL SA 10 MEQ TAB PO ONE (13:51)
[2022-02-28 15:30] LABS: Urine Blood 2+ (Negative); Urine Glucose Negative (Negative); Urine Protein 1+ (Negative); Urine Specific Gravity 1.015 (1.005-1.030)
[2022-02-28] MEDS ORDERED: CEFTRIAXONE 1000 MG/VIAL ONE (15:35)
[2022-02-28] MEDS ORDERED: NA CHLORIDE 0.9% 50 ML IV ONE (15:36)
--- NOTE | 2022-02-28 15:44 | ER ---
Nurse's Notes [facility] Name: Hina Meyers Age: 76 yrs Sex: Female : 1945 Arrival Date: 02/28/2022 Time: 11:55 Bed 7 Private MD: Diagnosis: UTI/ Urinary tract infection, site not specified;Sepsis, unspecified organism;Pyelonephritis acute Presentation: 02/28 11:55 Chief complaint: EMS states: Toned out for shortness of breath, O2 on RA was 89%, up to jl7 98% on 3 lpm via NC. Pt reports N/V, 4mg Zofran given in route. Pt discharged from [facility] on 02/26/22; dx with COVID on 02/20/22. Coronavirus screen: Vaccine status: Patient reports being unvaccinated. Client presents with at least one sign or symptom that may indicate coronavirus-19. positive test at [facility] 02/20/22. Ebola Screen: No symptoms or risks identified at this time. Initial Sepsis Screen: Does the patient meet any 2 criteria? No. Patient's initial sepsis screen is negative. Does the patient have a suspected source of infection? No. Patient's initial sepsis screen is negative. Risk Assessment: Do you want to hurt yourself or someone else? Patient reports no desire to harm self or others. Onset of symptoms is unknown. Care prior to arrival: Medication(s) given: zofran 4 mg. 11:55 Method Of Arrival: EMS: [facility] 11:55 Acuity: MELE 3 jl7 Triage Assessment: 12:04 General: Appears in no apparent distress. uncomfortable, ill, Behavior is cooperative, jl7 anxious. Pain: Complains of pain in left flank and right flank. Respiratory: Reports shortness of breath at rest Onset: The symptoms/episode began/occurred gradually, the patient has moderate shortness of breath. Historical: - Allergies: 12:04 Codeine; jl7 - Home Meds: 12:04 amitriptyline 25 mg Oral tab [Active]; potassium chloride Oral [Active]; levothyroxine jl7 25 mcg tab [Active]; losartan-hydrochlorothiazide 100-25 mg oral tab [Active]; lovastatin 40 mg Oral Tb24 [Active]; metoprolol succinate 100 mg oral CSpX [Active]; aspirin 81 mg Oral cap [Active]; clopidogrel 75 mg oral tab [Active]; - PMHx: 12:04 Hypothyroidism; Hypertensive disorder; Hypercholesterolemia; CAD; LBBB; jl7 - Immunization history:: Client reports having NOT received the Covid vaccine. Flu vaccine status is unknown. - Social history:: Smoking status: Patient denies any tobacco usage or history of. Screenin:34 [facility] ED Fall Risk Assessment (Adult) History of falling in the last 3 months, ap3 including since admission Yes- single mechanical fall (1 pt) Confusion or Disorientation No (0 pts) Intoxicated or Sedated No (0 pts) Impaired Gait Yes (1 pt) Mobility Assist Device Used No (0 pt) Altered Elimination No (0 pt) Score/Fall Risk Level 0 - 2 = Low Risk. Abuse screen: Denies threats or abuse. Nutritional screening: No deficits noted. Tuberculosis screening: No symptoms or risk factors identified. Assessment: 12:33 General: Appears uncomfortable, Behavior is anxious. Pain: Denies pain. Neuro: Level of ap3 Consciousness is awake, alert, obeys commands. Cardiovascular:. Respiratory: Reports shortness of breath at rest since 02/20/2022 Airway is patent Respiratory effort is even. 13:00 Reassessment: patient diaphoretic, hypotensive-provider notified. ap3 14:57 Cardiovascular: Rhythm is sinus tachycardia. ap3 15:41 Reassessment: Patient and/or family updated on plan of care and expected duration. Pain ap3 level reassessed. 16:40 Reassessment: Patient and/or family updated on plan of care and expected duration. Pain ap3 level reassessed. 19:28 General: Reports "My whole body hurts!, I just feel miserable.". Respiratory:. tw5 19:57 Respiratory: Breath sounds are diminished bilaterally. kd3 Vital Signs: 11:55 BP 128 / 61; Pulse 107; Resp 22 S; Temp 98.8(O); Pulse Ox 89% on R/A; Weight 76.2 kg jl7 (R); Height 5 ft. 3 in. (160.02 cm); 13:00 BP 90 / 56; Pulse 96; Pulse Ox 99% ; ap3 13:23 BP 102 / 52; Pulse 96; Pulse Ox 99% on R/A; ap3 13:36 BP 100 / 50; Pulse 91; Pulse Ox 100% on R/A; ap3 14:25 BP 90 / 58; Pulse 97; Pulse Ox 99% on R/A; ap3 14:57 BP 99 / 53; Pulse 89; ap3 15:10 BP 101 / 53; Pulse 88; Pulse Ox 100% on R/A; ap3 18:17 BP 106 / 51; Pulse 86; Pulse Ox 100% ; ap3 18:38 BP 141 / 69; Pulse 98; Pulse Ox 100% on R/A; ap3 19:28 BP 145 / 83; Pulse 104; Resp 22; Pulse Ox 100% on 2 lpm NC; tw5 19:38 Pulse 109; Resp 22; Temp 98.3(O); Pulse Ox 100% on 2 lpm NC; tw5 11:55 Body Mass Index 29.76 (76.20 kg, 160.02 cm) jl7 ED Course: 11:55 Patient arrived in ED. jl7 11:56 [facility]C [facility] kb 11:57 Bartolo Alvarez MD is Attending Physician. kb 12:04 Marisel Perez, SHAILESH is Primary Nurse. ap3 12:04 Triage completed. jl7 12:04 Arm band placed on right wrist. jl7 12:33 Inserted saline lock: 22 gauge in right antecubital area, using aseptic technique. ap3 Blood collected. 12:34 Patient has correct armband on for positive identification. Placed in gown. Bed in low ap3 position. Call light in reach. Side rails up X2. Adult w/ patient. monitor tech on. Pulse ox on. NIBP on. Door closed. Noise minimized. Warm blanket given. 12:37 Chest Single View XRAY In Process Unspecified. EDMS 13:15 Notified Nurse Practitioner and/or Physician Aircraft Instrument Repairer of a critical lab result(s), jl7 Lactate 3.0. 15:18 Straight cath inserted, using sterile technique, 16 Fr. Specimen obtained. Returned vg1 approximately 600 mL output. Patient tolerated well. 15:44 Tomas Alvarado is Hospitalizing Provider. kb 16:34 CT Abd/Pelvis - Without Contrast In Process Unspecified. EDMS 19:27 No provider procedures requiring assistance completed. Patient admitted, IV remains in tw5 place. 20:04 Primary Nurse role handed off by Marisel Perez RN 20:25 Edel Flanagan RN is Primary Nurse. kd3 Administered Medications: 13:17 CANCELLED (Duplicate Order): NS 0.9% 1000 ml IV at 1000 ml once kb 13:18 Drug: NS 0.9% (30 ml/kg) 30 ml/kg Route: IV; Rate: bolus; Site: right antecubital; ap3 13:53 Drug: Potassium Chloride 40 mEq Route: PO; ap3 15:40 Follow up: Response: No adverse reaction ap3 14:38 Drug: NS 0.9% (30 ml/kg) 30 ml/kg Route: IV; Rate: bolus; Site: right wrist; ap3 16:41 Follow up: IV Status: Completed infusion; IV Intake: 2250ml ap3 15:40 Drug: Rocephin (cefTRIAXone) 1 grams Route: IV; Rate: calculated rate; Site: right ap3 antecubital; 16:41 Follow up: IV Status: Completed infusion ap3 19:38 Drug: morphine 4 mg Route: IVP; Infused Over: 4 mins; Site: right antecubital; tw5 19:58 Follow up: Response: No adverse reaction; Pain is decreased kd3 19:38 Drug: Zofran (Ondansetron) 4 mg Route: IVP; Site: right antecubital; tw5 19:58 Follow up: Response: No adverse reaction; Nausea is decreased kd3 Medication: 14:56 VIS not applicable for this client. ap3 Intake: 16:41 IV: 2250ml; Total: 2250ml. ap3 Outcome: 15:44 Decision to Hospitalize by Provider. kb 19:57 Admitted to Med/surg kd3 19:57 Condition: stable 19:57 Discharge instructions given to patient, family, Instructed on follow up and referral plans. the need for admit, Demonstrated understanding of instructions. 20:25 Patient left the ED. kd3 Signatures: Dispatcher [employer] EDMS Kaia Sahu FNP-C FNP-Charlse Mcdonnell RN RN jl7 Marisel Perez RN RN ap3 Rabia Sauceda RN RN 1 Carmel Chen Svitlana Gonzalez tw5 Edel Flanagan RN RN kd3
--- NOTE | 2022-02-28 15:44 | EDPHYS ---
Physician Documentation [facility] Name: Hina Meyers Age: 76 yrs Sex: Female : 1945 Arrival Date: 02/28/2022 Time: 11:55 Bed 7 Private MD: ED Physician Bartolo Alvarez HPI: 02/28 15:57 This 76 yrs old Female presents to ER via EMS with complaints of Shortness Of Breath. kb 16:48 The patient has shortness of breath at rest. Onset: The symptoms/episode began/occurred kb last week. Duration: The symptoms are continuous, and are unchanged since they started. The patient's shortness of breath is aggravated by exertion. Associated signs and symptoms: Pertinent positives: non-productive cough, weakness. Severity of symptoms: At their worst the symptoms were moderate in the emergency department the symptoms are unchanged. The patient has not experienced similar symptoms in the past. The patient has been recently seen by a physician:. Patient was recently hospitalized at [facility] for COVID for 5 days. Family states she has been home for 3 days and has been progressively getting worse since then. Reports shortness of breath, weakness, decreased appetite.. Historical: - Allergies: 12:04 Codeine; jl7 - Home Meds: 12:04 amitriptyline 25 mg Oral tab [Active]; potassium chloride Oral [Active]; levothyroxine jl7 25 mcg tab [Active]; losartan-hydrochlorothiazide 100-25 mg oral tab [Active]; lovastatin 40 mg Oral Tb24 [Active]; metoprolol succinate 100 mg oral CSpX [Active]; aspirin 81 mg Oral cap [Active]; clopidogrel 75 mg oral tab [Active]; - PMHx: 12:04 Hypothyroidism; Hypertensive disorder; Hypercholesterolemia; CAD; LBBB; jl7 - Immunization history:: Client reports having NOT received the Covid vaccine. Flu vaccine status is unknown. - Social history:: Smoking status: Patient denies any tobacco usage or history of. ROS: 15:56 Constitutional: Negative for fever, chills, and weight loss. kb 15:56 Respiratory: Positive for shortness of breath. 15:56 Back: Positive for flank pain, bilaterally. 15:56 Neuro: Positive for weakness. 15:56 All other systems are negative. Exam: 15:56 Constitutional: This is a well developed, well nourished patient who is awake, alert, kb and in no acute distress. Head/Face: Normocephalic, atraumatic. ENT: Moist Mucous membranes Cardiovascular: Regular rate and rhythm with a normal S1 and S2. No gallops, murmurs, or rubs. No pulse deficits. Respiratory: Respirations even and unlabored. No increased work of breathing. Talking in full sentences Abdomen/GI: Soft, non-tender. No distention Skin: Warm, dry with normal turgor. Normal color. MS/ Extremity: Pulses equal, no cyanosis. Neurovascular intact. Full, normal range of motion. 15:56 Neuro: Orientation: is normal, Mentation: is normal, Memory: is normal, Motor: moves all fours. Vital Signs: 11:55 BP 128 / 61; Pulse 107; Resp 22 S; Temp 98.8(O); Pulse Ox 89% on R/A; Weight 76.2 kg 7 (R); Height 5 ft. 3 in. (160.02 cm); 13:00 BP 90 / 56; Pulse 96; Pulse Ox 99% ; ap3 13:23 BP 102 / 52; Pulse 96; Pulse Ox 99% on R/A; ap3 13:36 BP 100 / 50; Pulse 91; Pulse Ox 100% on R/A; ap3 14:25 BP 90 / 58; Pulse 97; Pulse Ox 99% on R/A; ap3 14:57 BP 99 / 53; Pulse 89; ap3 15:10 BP 101 / 53; Pulse 88; Pulse Ox 100% on R/A; ap3 18:17 BP 106 / 51; Pulse 86; Pulse Ox 100% ; ap3 18:38 BP 141 / 69; Pulse 98; Pulse Ox 100% on R/A; ap3 19:28 BP 145 / 83; Pulse 104; Resp 22; Pulse Ox 100% on 2 lpm NC; tw5 19:38 Pulse 109; Resp 22; Temp 98.3(O); Pulse Ox 100% on 2 lpm NC; tw5 11:55 Body Mass Index 29.76 (76.20 kg, 160.02 cm) [facility] MDM: 11:57 Patient medically screened. kb 15:03 Data reviewed: vital signs, nurses notes. kb 16:49 Differential diagnosis: Bronchitis pneumonia, Sepsis. Consideration of kb Admission/Observation Patient was admitted/placed on observation. Management of patient was discussed with the following: Hospitalist: PUAL Burgess accepts pt for transfer under [facility]. Independent interpretation of the following test(s) in the Emergency Department EKG: See my EKG interpretation above. Historians other than the Patient: Family Member: Son. Counseling: I had a detailed discussion with the patient and/or guardian regarding: the historical points, exam findings, and any diagnostic results supporting the discharge/admit diagnosis, lab results, radiology results, the need for further work-up and treatment in the hospital. 02/28 12:03 Order name: Blood Culture Adult (2) kb 02/28 12:03 Order name: CBC with Diff; Complete Time: 13:53 kb 02/28 12:03 Order name: CMP; Complete Time: 13:33 kb 02/28 12:03 Order name: Lactate w/ 2H reflex if indic.; Complete Time: 13:17 kb 02/28 12:03 Order name: Protime (+inr); Complete Time: 13:22 kb 02/28 12:03 Order name: Ptt, Activated; Complete Time: 13:22 kb 02/28 12:03 Order name: Urine Culture 02/28 12:03 Order name: Urine Microscopic Only; Complete Time: 15:53 kb 02/28 12:42 Order name: CBC Smear Scan; Complete Time: 13:53 EDMS 02/28 13:29 Order name: Glucose, Ancillary Testing; Complete Time: 13:33 EDMS 02/28 15:30 Order name: Urine Dipstick-Ancillary; Complete Time: 15:30 EDMS 02/28 15:44 Order name: SARS RAPID; Complete Time: 17:44 kb 02/28 17:12 Order name: Urinalysis EDOR 02/28 17:12 Order name: Basic Metabolic Panel EDOR 02/28 12:03 Order name: Chest Single View XRAY; Complete Time: 12:52 kb 02/28 15:53 Order name: CT Abd/Pelvis - Without Contrast; Complete Time: 17:03 kb 02/28 17:12 Order name: Basic Metabolic Panel EDOR 02/28 17:12 Order name: Basic Metabolic Panel EDOR 02/28 17:12 Order name: Basic Metabolic Panel EDOR 02/28 17:12 Order name: CBC with Automated Diff EDOR 02/28 17:12 Order name: CBC with Automated Diff EDMS 02/28 17:12 Order name: CBC with Automated Diff EDMS 02/28 17:12 Order name: CBC with Automated Diff EDMS 02/28 17:12 Order name: Magnesium EDMS 02/28 17:12 Order name: Magnesium EDMS 02/28 17:12 Order name: Phosphorus EDMS 02/28 17:12 Order name: Phosphorus EDMS 02/28 18:06 Order name: Lactate Sepsis 2 HR Follow-up; Complete Time: 18:07 EDMS 02/28 12:03 Order name: EKG; Complete Time: 12:04 kb 02/28 12:03 Order name: Accucheck; Complete Time: 13:18 kb 02/28 12:03 Order name: Cardiac monitoring; Complete Time: 12:04 kb 02/28 12:03 Order name: EKG - Nurse/Tech; Complete Time: 12:04 kb 02/28 12:03 Order name: IV Saline Lock - Large Bore; Complete Time: 14:40 kb 02/28 12:03 Order name: Labs collected and sent; Complete Time: 12:04 kb 02/28 12:03 Order name: O2 Per Protocol; Complete Time: 12:04 kb 02/28 12:03 Order name: O2 Sat Monitoring; Complete Time: 12:04 kb 02/28 12:03 Order name: Urine Dipstick-Ancillary (obtain specimen); Complete Time: 15:25 kb 02/28 12:03 Order name: Vital Signs; Complete Time: 12:06 kb 02/28 12:47 Order name: Misc. Order: recollect blue and green top; Complete Time: 13:18 jl7 02/28 13:11 Order name: Blood Glucose Level; Complete Time: 13:18 kb 02/28 17:12 Order name: Heart Healthy EDMS Administered Medications: 13:17 CANCELLED (Duplicate Order): NS 0.9% 1000 ml IV at 1000 ml once kb 13:18 Drug: NS 0.9% (30 ml/kg) 30 ml/kg Route: IV; Rate: bolus; Site: right antecubital; ap3 13:53 Drug: Potassium Chloride 40 mEq Route: PO; ap3 15:40 Follow up: Response: No adverse reaction ap3 14:38 Drug: NS 0.9% (30 ml/kg) 30 ml/kg Route: IV; Rate: bolus; Site: right wrist; ap3 16:41 Follow up: IV Status: Completed infusion; IV Intake: 2250ml ap3 15:40 Drug: Rocephin (cefTRIAXone) 1 grams Route: IV; Rate: calculated rate; Site: right ap3 antecubital; 16:41 Follow up: IV Status: Completed infusion ap3 19:38 Drug: morphine 4 mg Route: IVP; Infused Over: 4 mins; Site: right antecubital; tw5 19:58 Follow up: Response: No adverse reaction; Pain is decreased kd3 19:38 Drug: Zofran (Ondansetron) 4 mg Route: IVP; Site: right antecubital; tw5 19:58 Follow up: Response: No adverse reaction; Nausea is decreased kd3 Disposition Summary: 02/28/22 15:44 Hospitalization Ordered Hospitalization Status: Inpatient Admission kb Provider: Tomas Alvarado [facility] Condition: Stable kb Problem: new kb Symptoms: are unchanged kb Bed/Room Type: Standard Room Assignment: 223(02/28/22 19:22) Diagnosis - UTI/ Urinary tract infection, site not specified kb - Sepsis, unspecified organism kb - Pyelonephritis acute kb Forms: - Medication Reconciliation Form kb - SBAR form kb Signatures: Dispatcher [employer] EDMS Kaia Sahu, NITZA-Shakir GODDARD-Jocelin Contreras RN RN dw Charles Botello RN RN jl7 Marisel Perez RN RN ap3 Svitlana Gonzalez tw5 Camelia Call PA-C PA-C sb4 Edel Flanagan RN kd3 Corrections: (The following items were deleted from the chart) 13:17 13:07 NS 0.9% 1000 ml IV at 1000 ml once ordered. kb kb 19:22 15:44 kb dw
[2022-02-28 15:47] LABS: Urine Bacteria <20 /HPF (<20); Urine RBC 21-50 /HPF (None Seen)
--- NOTE | 2022-02-28 17:02 | RAD REPORT ---
EXAM DESCRIPTION: CTAbdomen Pelvis Wo Contrast - 02/28/2022 4:32 pm CLINICAL HISTORY: bilateral flank pain COMPARISON: No comparisons TECHNIQUE: CT of the abdomen and pelvis was performed. All CT scans are performed using dose optimization technique as appropriate and may include automated exposure control or mA/KV adjustment according to patient size. FINDINGS: Lower chest: Multi-vessel coronary artery disease. Liver: No acute abnormality or suspicious lesions. Biliary: Cholecystectomy Stomach: No significant focal abnormality. Duodenum: No significant focal abnormality. Pancreas: No significant abnormality. Spleen: No significant abnormality. Adrenal: No suspicious lesions. Kidney/ureter: No hydronephrosis. Nonspecific perinephric stranding, left greater than right. No uret eral calculi. Retroperitoneum: No retroperitoneal adenopathy. Vascular: No aneurysm. Bowel: Dilated small bowel in the right lower quadrant with multiple air-fluid levels. The small maricarmen l measures just under 3 cm. No definite transition point . Peritoneum: No ascites or free air. Bladder: Distended bladder. Reproductive: No adnexal masses. Hysterectomy . Bones: No acute fracture. Other: n/a IMPRESSION: 1. Distended bladder. Consider Earl catheter placement if urinary retention suspected. Left perinephric stranding noted without renal or ureteral calculi. This could represent in ascending urinary tract infection. 2. Distended small bowel in the central abdomen and right lower quadrant. This could reflect enteriti s however cannot exclude an early small bowel obstruction.
--- NOTE | 2022-02-28 17:35 | P.HP ---
Certification for Inpatient With expected LOS: >2 Midnights Patient will require the following post-hospital care: None Practitioner: I am a practitioner with admitting privileges, knowledge of patient current condition, hospital course, and medical plan of care. Services: Services provided to patient in accordance with Admission requirements found in Title 42 Section 412.3 of the Code of Federal Regulations Patient History Date of Service: 02/28/22 Primary Care Provider: Olimpia Reason for admission: UTI/Sepsis History of Present Illness: 65-year-old female with past medical history of hypertension hyperlipidemia CAD with stents hypothyroidism. Patient presents to the hospital with complaints of nausea vomiting and left flank pain. She was released from [facility] 2 days ago with a diagnosis of COVID. She thought her symptoms were related to her having COVID. Per patient's daughter, she reported that her mother had cloudy urine with mild odor. She also reported that her mother's blood pressure was low. She also reported decreased appetite. Additional associated symptoms of fatigue malaise fever chills. She stated her mom took some Tylenol which helped alleviated some of the symptoms. She denies any chest pain, shortness of breath, palpitation or headache. In the ER, patient's lab were significant for hypokalemia with a potassium of 2.9, creatinine of 1.57 BUN of 28 lactic of 3. Her liver enzymes were also elevated AST of 186 ALT of 143 and total bili of 1.4. Patient will be admitted under the care of Dr. Alvarado. Infectious disease will be consulted for further recommendations. Allergies codeine [Codeine] Allergy (Mild, Verified 07/12/11 11:19) Itching Home Medications: Amitriptyline [Elavil*] 25 mg PO TID 07/12/11 Amitriptyline [Elavil*] 25 mg PO TID 07/12/11 Clonidine HCl [Catapres] 0.1 mg PO BEDTIME 07/12/11 Estrogens,Conjugated [Premarin] 1.25 mg PO DAILY 07/12/11 Irbesartan/Hydrochlorothiazide [Avalide 300-25 mg Tablet] 1 each PO DAILY 07/12/11 Metoprolol Tartrate [Lopressor*] 50 mg PO BID 07/12/11 Nitroglycerin [Nitrostat] 0.4 mg SL UD PRN 07/12/11 Olmesartan/Amlodipin/Hcthiazid [Tribenzor 40-10-25 mg Tablet] 1 each PO DAILY 07/12/11 Potassium Bicarbonate/Cit AC [Potassium 25 Meq Tablet Eff] 25 meq PO DAILY 07/12/11 - Past Medical/Surgical History Diabetic: No -: Hypothyroidism -: Hypertension -: HLD -: CAD with stents Past Surgical History: Reviewed- Non-Contributory - Family History Family History: Reviewed- Non-Contributory - Social History Smoking Status: Never smoker Alcohol use: No CD- Drugs: No Caffeine use: Yes Review of Systems 10-point ROS is otherwise unremarkable General: Fever, Chills, Weakness Gastrointestinal: Nausea, Vomiting Physical Examination - Vital Signs Temperature: 98.8 F Blood Pressure: 90/62 Pulse: 97 Respirations: 18 Pulse Ox (%): 99 - Physical Exam General: Alert, In no apparent distress HEENT: Atraumatic, Normocephalic, PERRLA Neck: Supple, 2+ carotid pulse no bruit Respiratory: Clear to auscultation bilaterally, Normal air movement Cardiovascular: No edema, Normal pulses Capillary refill: <2 Seconds Gastrointestinal: Normal bowel sounds, Tenderness (left flank pain) Musculoskeletal: No clubbing, No swelling Integumentary: No rashes, No breakdown Neurological: Normal speech, Normal strength at 5/5 x4 extr Lymphatics: No axilla or inguinal lymphadenopathy - Studies Laboratory Data (last 24 hrs) 02/28/22 13:05: PT 14.1 H, INR 1.28, APTT 29.5 02/28/22 13:05: Sodium 134 L, Potassium 2.9 L*, BUN 28 H, Creatinine 1.57 H, Glucose 182 H, Total Bilirubin 1.4 H, AST 186 H, ALT 143 H, Alkaline Phosphatase 110 02/28/22 12:28: WBC 9.90, Hgb 14.5, Hct 41.5, Plt Count 196 Assessment and Plan - Plan Assessment UTI Sepsis TORSTEN Hypokalemia Transaminitis Insomnia Hypertension CAD with stent Hypothyroidism Plan UTI Continue antibiotic Hydrate with IV fluid, NS at 75 cc an hour Infectious disease consulted, recommendations appreciated Urine culture, blood cultures been CT abd/pelvis -Distended bladder. Consider Earl catheter placement if urinary retention suspected. Left perinephric stranding noted without renal or ureteral calculi. This could represent in ascending urinary tract infection. -Distended small bowel in the central abdomen and right lower quadrant. This could reflect enteritis however cannot exclude an early small bowel obstruction Sepsis Likely due to urinary tract infection Lactic 3, repeat pending Received 2 L of normal saline in the ER Blood pressure stable Blood cultures and urine cultures pending Continue IV fluids at 75 cc an hour TORSTEN Creatinine 1.57 BUN 28 Continue IV fluid Avoid nephrotoxic agent Hypokalemia Potassium 2.9 Replaced in the ER, recheck pending Transaminitis Elevated liver enzyme AST 186 ALT 143 total bili 1.4 Continue to monitor Insomnia Continue melatonin as needed Hypertension Resume home meds when appropriate CAD with stent Resume home meds when appropriate Hypothyroidism Resume home meds when appropriate Discharge Plan: Home Plan to discharge in: 48 Hours - Advance Directives Does patient have a Living Will: No Does patient have a Durable POA for Healthcare: No - Code Status/Comfort Care Code Status Assessed: Yes (Full code) Critical Care: No Time Spent Managing Pts Care (In Minutes): 50
[2022-02-28 17:42] LABS: SARS-CoV-2 Antigen Rapid Res Positive (Negative)
--- NOTE | 2022-02-28 18:49 | P.INFCA ---
Sepsis Focused Assessment - Focused Assessment Complete? Sepsis Focused Assessment Completed?: Yes - Sepsis Screen Result Severe Sepsis: Positive - Evaluation Current stage of sepsis: Severe sepsis - Vital Signs Reviewed: Yes Temperature: 98.8 F Heart rate: 97 Blood Pressure: 90/62 Respiratory Rate: 18 O2 Sat by Pulse Oximetry: 99 - Examination Heart: Regular rate/rhythm, S1, S2, Tachycardia Lungs: Diminished air movement Peripheral pulses: 3+ Normal Peripheral pulse location: Radial Capillary refill: <2 Seconds Skin examination: Normal turgor
[2022-02-28] MEDS ORDERED: MORPHINE 4 MG/ML SYR ONE (19:35)
[2022-02-28] MEDS ORDERED: ONDANSETRON 4 MG/2 ML VIAL ONE (19:35)
[2022-02-28] MEDS: NA CHLORIDE 0.9% 1,000 ML IV SCH (20:47)
[2022-02-28] MEDS: CEFTRIAXONE 1,000 MG in NA CHLORIDE 0.9% 50 ML IVPB SCH (22:11)
[2022-02-28] MEDS: MELATONIN 3 MG TABLET PO PRN (22:11)
[2022-03-01 05:24] LABS: Absolute Lymphocytes (CBC) 0.7 K/uL (0.7-4.9); Hematocrit 34.2 % (36.0-45.0); Lymphocytes % 5.4 % (15.3-44.8); MCV 93.7 fL (80-100); MPV 7.3 fL (7.6-11.3); RBC Red Blood Cell Count 3.66 M/uL (3.86-4.86)
[2022-03-01 05:36] LABS: Phosphorus 2.9 mg/dL (2.5-4.9); Potassium 3.6 mmol/L (3.5-5.1)
[2022-03-01] MEDS: NA CHLORIDE 0.9% 1,000 ML IV SCH ×2 (06:02→11:07)
[2022-03-01] MEDS: CEFTRIAXONE 1,000 MG in NA CHLORIDE 0.9% 50 ML IVPB SCH (08:59)
[2022-03-01] MEDS ORDERED: POTASSIUM 25 MEQ EFFERV TAB PO ONE (09:00)
[2022-03-01] MEDS ORDERED: ENOXAPARIN 30 MG/0.3 ML SQ SCH (09:00)
--- NOTE | 2022-03-01 10:49 | EKG ---
Test Date: 2022-02-28 Test Time: 13:11:55 Landscaping Crew Leader: LEE MEASUREMENT RESULTS: Intervals: Rate: 102 NV: 206 QRSD: 128 QT: 372 QTc: 484 [place]: P: 68 NV: 206 QRS: -35 T: 105 INTERPRETIVE STATEMENTS: Sinus tachycardia with premature supraventricular complexes Left axis deviation Left bundle branch block Abnormal ECG Compared to ECG 02/28/2022 12:00:57 Atrial premature complex(es) now present Electronically Signed On 03-01-22 10:46:44 FLASK FITTER by Matthew Lawrence
--- NOTE | 2022-03-01 10:50 | EKG ---
Test Date: 2022-02-28 Test Time: 12:00:57 Benefits Analyst: AMADO MEASUREMENT RESULTS: Intervals: Rate: 107 OK: 200 QRSD: 130 QT: 346 QTc: 461 [place]: P: 64 OK: 200 QRS: -47 T: 109 INTERPRETIVE STATEMENTS: Sinus tachycardia Left axis deviation Left bundle branch block Abnormal ECG Compared to ECG 07/13/2011 11:56:08 Left-axis deviation now present Sinus rhythm no longer present First degree AV block no longer present Electronically Signed On 03-01-22 10:46:46 TECHNICAL SYSTEMS ARCHITECT by Matthew Lawrence
--- NOTE | 2022-03-01 14:54 | P.PN ---
Subjective Date of Service: 03/01/22 Primary Care Provider: Doan Chief Complaint: UTI/Sepsis Patient states she feels much better today. Blood pressure has been stable. She has been afebrile. She is currently maintained on 2 L oxygen by nasal cannula. Physical Examination - Vital Signs Temperature: 97.2 F Blood Pressure: 112/58 Pulse: 82 Respirations: 18 Pulse Ox (%): 97 - Studies Microbiology Data (last 24 hrs): 02/28/22 12:28 Blood - Blood Blood Culture Gram Stain - Final 02/28/22 12:28 Blood - Blood Gram Stain - Final Assessment And Plan - Current Problems (Diagnosis) (1) Sepsis Current Visit: Yes Status: Acute (2) Acute cystitis without hematuria Current Visit: Yes Status: Acute (3) Enteritis Current Visit: Yes Status: Acute - Plan Physical Exam General: Alert, In no apparent distress Neck: Supple, no elevated JVD. Respiratory: Clear to auscultation bilaterally, Normal air movement Cardiovascular: No edema, Normal pulses Capillary refill: <2 Seconds Gastrointestinal: Normal bowel sounds, Tenderness (left flank pain) Musculoskeletal: No swelling Integumentary: No rashes, No breakdown Neurological: Normal speech, Normal strength at 5/5 x4 extr Plan: Seen by infectious disease.
[2022-03-01] MEDS ORDERED: HYDROCODONE/APAP 5/325 MG TAB PO PRN (15:14)
[2022-03-01] MEDS: ACETAMINOPHEN 325 MG TABLET PO PRN (15:49)
[2022-03-01] MEDS: METRONIDAZOLE 500mg IVPB 500 MG/100 ML BAG IV SCH (18:39)
--- NOTE | 2022-03-01 21:00 | CON ---
History Of Present Illness: This is a 76-year-old female coming in with significant past medical his tory of hypertension, hyperlipidemia, coronary artery disease, hypothyroidism. Patient was initially admitted with nausea, vomiting, and left leg pain. She was also treated at [facility] for COVID infection and having some diarrhea, which has improved significantly. Family is also present in the room, [facility] also was helpful in giving patient's history. Past Medical History: As per HPI. Social History: Nonsmoker, nondrinker. Family History: Noncontributory. Medications: Rocephin. See MAR for other medications. Allergies: CODEINE. Review of Systems: 10-point review was performed. Physical Examination: General: Patient is lying in bed, in isolation room, not in any acute cardiopulmonary distress. Vital Signs: Temperature 99.3, pulse 89, respiration 18, blood pressure 121/54. HEENT: Unremarkable. Neck: Supple. Lungs: Basal crackles. Heart: S1, S2. Regular. Abdomen: Soft, nontender. Bowel sounds present. Extremities: No edema. Laboratory Data: Shows WBC 12.7, hemoglobin 11.6, platelets are 134. Chemistry shows BUN of 24, cre atinine 1.27. Urine cultures are growing 4+ gram-negative rods. Assessment And Plan: A 76-year-old female with recent COVID infection and diarrhea secondary to ente ritis, coming in with leukocytosis, anemia of chronic disease, thrombocytopenia, and urine culture gr owing 4+ gram-negative rods. We will recommend to discontinue Rocephin and start patient on cefepime . Also, recommend to add probiotic and Flagyl. We will continue to monitor patient closely. Thank you Dr. Alvarado for consult. NF/MODL Voice ID: [id number] Report ID: [id number]
[2022-03-01] MEDS: MELATONIN 3 MG TABLET PO PRN (23:35)
[2022-03-02] MEDS: METRONIDAZOLE 500mg IVPB 500 MG/100 ML BAG IV SCH ×3 (00:49→16:27)
[2022-03-02] MEDS: ACETAMINOPHEN 325 MG TABLET PO PRN ×4 (01:27→21:54)
[2022-03-02] MEDS: NA CHLORIDE 0.9% 1,000 ML IV SCH ×2 (03:55→21:55)
[2022-03-02 04:37] LABS: Absolute Lymphocytes (CBC) 0.5 K/uL (0.7-4.9); Hematocrit 29.2 % (36.0-45.0); Lymphocytes % 6.3 % (15.3-44.8); MCV 93.2 fL (80-100); MPV 7.1 fL (7.6-11.3); RBC Red Blood Cell Count 3.14 M/uL (3.86-4.86)
[2022-03-02 04:48] LABS: Potassium 3.6 mmol/L (3.5-5.1)
[2022-03-02] MEDS: ASPIRIN 81 MG CHEWABLE TABLET PO SCH (08:39)
[2022-03-02] MEDS: LOSARTAN POTASSIUM 50 MG TABLET PO SCH (08:40)
[2022-03-02] MEDS: ENOXAPARIN 40 MG/0.4 ML SQ SCH (08:41)
[2022-03-02] MEDS: LEVOTHYROXINE SOD 0.025 MG TAB PO SCH ×2 (08:41→08:42)
[2022-03-02] MEDS: hydroCHLOROthiazide 25 MG TAB PO SCH (08:41)
[2022-03-02] MEDS: ZINC SULFATE 220 MG CAP PO SCH (08:42)
[2022-03-02] MEDS: POTASSIUM CL SA 10 MEQ TAB PO SCH (08:42)
[2022-03-02] MEDS ORDERED: AMITRIPTYLINE 25 MG PO SCH (09:00)
[2022-03-02] MEDS ORDERED: CEFEPIME 1 GM/VIAL ONE (09:50)
[2022-03-02] MEDS ORDERED: NA CHLORIDE 0.9% 100 ML ONE ×2 (09:51→16:17)
[2022-03-02] MEDS: CEFEPIME 1 GM in NA CHLORIDE 0.9% 100 ML IV SCH (10:01)
--- NOTE | 2022-03-02 13:30 | P.PN ---
Subjective Date of Service: 03/02/22 Primary Care Provider: Doan Chief Complaint: UTI/Sepsis Patient is complaining of back pain. She has no other complaint. She has been afebrile. She is stable on 2 L oxygen by nasal cannula. Physical Examination - Vital Signs Temperature: 98 F Blood Pressure: 137/71 Pulse: 83 Respirations: 18 Pulse Ox (%): 100 - Studies Microbiology Data (last 24 hrs): 02/28/22 15:28 Clean Catch Urine [place] Count - Final >100,000 CFU/ML. 02/28/22 15:28 Clean Catch Urine - Final Escherichia Coli 02/28/22 12:28 Blood - Blood Aerobic Blood Culture - Final Escherichia Coli 02/28/22 12:28 Blood - Blood Blood Culture Gram Stain - Final 02/28/22 12:28 Blood - Blood Anaerobic Blood Culture - Final Escherichia Coli 02/28/22 12:28 Blood - Blood Gram Stain - Final Assessment And Plan - Current Problems (Diagnosis) (1) Sepsis Current Visit: Yes Status: Acute (2) Acute cystitis without hematuria Current Visit: Yes Status: Acute (3) Enteritis Current Visit: Yes Status: Acute (4) Acute renal failure Current Visit: Yes Status: Acute (5) COVID-19 virus infection Current Visit: Yes Status: Acute (6) Acute respiratory failure with hypoxemia Current Visit: Yes Status: Acute - Plan Physical Exam General: Alert, In no apparent distress Neck: Supple, no elevated JVD. Respiratory: Clear to auscultation bilaterally, Normal air movement Cardiovascular: No edema, Normal pulses Capillary refill: <2 Seconds Gastrointestinal: Normal bowel sounds, Tenderness (left flank pain) Musculoskeletal: No swelling Integumentary: No rashes, No breakdown Neurological: Normal speech, Normal strength at 5/5 x4 extr Plan: Blood cultures and urine culture are growing E. coli. Continue current antibiotic. Patient seen by infectious disease. She will need 2 weeks of antibiotic. Noted patient tested positive for COVID-19 and was hospitalized for about 10 days. Wean off oxygen as tolerated. Patient with history of DVT. She has not been on full anticoagulation. Currently on Lovenox DVT prophylax. Diet as tolerated Renal function improved. Continue IV fluid and monitor renal function.
[2022-03-02] MEDS: AMITRIPTYLINE 25 MG TAB PO PRN (21:54)
[2022-03-02] MEDS: MELATONIN 3 MG TABLET PO PRN (21:54)
[2022-03-03] MEDS: METRONIDAZOLE 500mg IVPB 500 MG/100 ML BAG IV SCH ×3 (01:47→16:12)
[2022-03-03 03:11] LABS: Absolute Lymphocytes (CBC) 0.5 K/uL (0.7-4.9); Hematocrit 28.7 % (36.0-45.0); Lymphocytes % 11.5 % (15.3-44.8); MCV 93.7 fL (80-100); MPV 6.8 fL (7.6-11.3); RBC Red Blood Cell Count 3.06 M/uL (3.86-4.86)
[2022-03-03 03:31] LABS: Potassium 3.7 mmol/L (3.5-5.1)
[2022-03-03 06:09] VITALS: BMI 32.8
[2022-03-03] MEDS ORDERED: CEFEPIME 1 GM/VIAL ONE (07:54)
[2022-03-03] MEDS: ENOXAPARIN 40 MG/0.4 ML SQ SCH (09:00)
[2022-03-03] MEDS ORDERED: NA CHLORIDE 0.9% 100 ML ONE (09:46)
[2022-03-03] MEDS: hydroCHLOROthiazide 25 MG TAB PO SCH (09:48)
[2022-03-03] MEDS: ZINC SULFATE 220 MG CAP PO SCH (09:49)
[2022-03-03] MEDS: POTASSIUM CL SA 10 MEQ TAB PO SCH (09:49)
[2022-03-03] MEDS: LOSARTAN POTASSIUM 50 MG TABLET PO SCH (09:49)
[2022-03-03] MEDS: ASPIRIN 81 MG CHEWABLE TABLET PO SCH (09:49)
[2022-03-03] MEDS: CEFEPIME 1 GM in NA CHLORIDE 0.9% 100 ML IV SCH (09:49)
[2022-03-03] MEDS: ONDANSETRON 4 MG/2 ML VIAL IV PRN ×3 (09:49→21:37)
[2022-03-03] MEDS: NA CHLORIDE 0.9% 1,000 ML IV SCH (11:08)
--- NOTE | 2022-03-03 12:58 | P.PN ---
Subjective Date of Service: 03/03/22 Primary Care Provider: Doan Chief Complaint: UTI/Sepsis Patient has no new complaint. She has been afebrile. Physical Examination - Vital Signs Temperature: 98.7 F Blood Pressure: 126/61 Pulse: 77 Respirations: 16 Pulse Ox (%): 96 Assessment And Plan - Current Problems (Diagnosis) (1) Sepsis Current Visit: Yes Status: Acute (2) Acute cystitis without hematuria Current Visit: Yes Status: Acute (3) Enteritis Current Visit: Yes Status: Acute (4) Acute renal failure Current Visit: Yes Status: Acute (5) COVID-19 virus infection Current Visit: Yes Status: Acute (6) Acute respiratory failure with hypoxemia Current Visit: Yes Status: Acute (7) Chronic anemia Current Visit: Yes Status: Acute (8) Thrombocytopenia Current Visit: Yes Status: Acute - Plan Physical Exam General: Alert, In no apparent distress Neck: Supple, no elevated JVD. Respiratory: Clear to auscultation bilaterally, Normal air movement Cardiovascular: No edema, Normal pulses Gastrointestinal: Normal bowel sounds, no tenderness. Musculoskeletal: No swelling Integumentary: No rashes, No breakdown Plan: Blood cultures and urine culture are grew E. coli. Repeat blood cultures pending. Continue IV cefepime Patient seen by infectious disease. She will need 2 weeks of antibiotic per ID. Anticipating oral antibiotics on discharge. Noted patient tested positive for COVID-19 and was hospitalized for about 10 days. She is maintained on 2 L oxygen by nasal cannula. Check room air oxygen saturation. Patient with history of DVT. She has not been on full anticoagulation. Diet as tolerated Acute renal failure resolved. Discontinue IV fluid. anemia and thrombocytopenia noted. Continue to monitor CBC. Continue Lovenox for DVT prophylaxis.
[2022-03-03] MEDS: AMITRIPTYLINE 25 MG TAB PO PRN (21:54)
[2022-03-03] MEDS: MELATONIN 3 MG TABLET PO PRN (21:54)
[2022-03-03] MEDS: ASCORBIC ACID 500 MG TABLET PO SCH (21:54)
[2022-03-03] MEDS: ACETAMINOPHEN 325 MG TABLET PO PRN (21:54)
[2022-03-04] MEDS: NA CHLORIDE 0.9% 1,000 ML IV SCH (01:19)
[2022-03-04] MEDS: METRONIDAZOLE 500mg IVPB 500 MG/100 ML BAG IV SCH (01:19)
[2022-03-04 04:50] LABS: Absolute Lymphocytes (CBC) 0.9 K/uL (0.7-4.9); Lymphocytes % 16.6 % (15.3-44.8); MPV 6.5 fL (7.6-11.3)
[2022-03-04 05:00] LABS: Potassium 4.2 mmol/L (3.5-5.1)
[2022-03-04 05:43] LABS: Blood Morphology Comment NOT SEEN (NOT SEEN); Platelet Estimate ADEQ
[2022-03-04] MEDS ORDERED: CEFEPIME 1 GM/VIAL ONE (07:53)
[2022-03-04] MEDS ORDERED: NA CHLORIDE 0.9% 100 ML ONE (07:54)
[2022-03-04] MEDS: POTASSIUM CL SA 10 MEQ TAB PO SCH (08:14)
[2022-03-04] MEDS: ASCORBIC ACID 500 MG TABLET PO SCH (08:14)
[2022-03-04] MEDS: hydroCHLOROthiazide 25 MG TAB PO SCH (08:14)
[2022-03-04] MEDS: LOSARTAN POTASSIUM 50 MG TABLET PO SCH (08:14)
[2022-03-04] MEDS: LEVOTHYROXINE SOD 0.025 MG TAB PO SCH (08:14)
[2022-03-04] MEDS: ZINC SULFATE 220 MG CAP PO SCH (08:14)
[2022-03-04] MEDS: metroNIDAZOLE 500 MG TABLET PO SCH ×2 (08:15→14:34)
[2022-03-04] MEDS: ENOXAPARIN 40 MG/0.4 ML SQ SCH (08:15)
[2022-03-04] MEDS: ASPIRIN 81 MG CHEWABLE TABLET PO SCH (08:15)
[2022-03-04] MEDS: CEFEPIME 1 GM in NA CHLORIDE 0.9% 100 ML IV SCH (08:16)
[2022-03-04] MEDS ORDERED: MAGNESIUM OXIDE 400 MG TAB PO SCH (09:00)
[2022-03-04] MEDS ORDERED: ATORVASTATIN 10 MG TAB PO SCH (09:00)
[2022-03-04] MEDS ORDERED: CLOPIDOGREL 75 MG TABLET PO SCH (09:00)
[2022-03-04] MEDS ORDERED: VITAMIN D 1000 UNIT TAB PO SCH (09:00)
--- NOTE | 2022-03-04 09:32 | P.PN ---
Subjective Date of Service: 03/04/22 Primary Care Provider: Doan Chief Complaint: UTI/Sepsis Patient lying in bed pleasant with no cardiopulmonary distress. Reported feeling better and ready to go home. Physical Examination - Vital Signs Temperature: 98.6 F Blood Pressure: 141/67 Pulse: 89 Respirations: 18 Pulse Ox (%): 99 - Physical Exam General: Alert, In no apparent distress, Oriented x3 Respiratory: Clear to auscultation bilaterally Cardiovascular: No edema, Normal pulses, Normal S1 S2 Gastrointestinal: Normal bowel sounds Musculoskeletal: No swelling, No tenderness Integumentary: No rashes, No breakdown Neurological: Normal speech, Normal tone - Studies Current Medications: Acetaminophen (Acetaminophen 325 Mg Tablet) 650 mg PO Q6H PRN PRN Reason: Pain scale 2-4 (Mild) Last Admin: 03/03/22 21:54 Dose: 650 mg Amitriptyline HCl (Amitriptyline 25 Mg Tab) 25 mg PO BEDTIME PRN PRN PRN Reason: INSOMNIA Last Admin: 03/03/22 21:54 Dose: 25 mg Ascorbic Acid (Ascorbic Acid 500 Mg Tablet) 500 mg PO BID [facility] Last Admin: 03/04/22 08:14 Dose: 500 mg Aspirin (Aspirin 81 Mg Chewable Tablet) 81 mg PO DAILY [facility] Last Admin: 03/04/22 08:15 Dose: 81 mg Atorvastatin Calcium (Atorvastatin 10 Mg Tab) 10 mg PO DAILY [facility] Last Admin: 03/04/22 08:15 Dose: 10 mg Cholecalciferol (Vitamin D 1000 Unit Tab) 1,000 unit PO DAILY [facility] Last Admin: 03/04/22 08:15 Dose: 1,000 unit Clopidogrel Bisulfate (Clopidogrel 75 Mg Tablet) 75 mg PO DAILY [facility] Last Admin: 03/04/22 08:14 Dose: 75 mg Enoxaparin Sodium (Enoxaparin 40 Mg/0.4 Ml) 40 mg SQ DAILY [facility] Last Admin: 03/04/22 08:15 Dose: 40 mg Hydrochlorothiazide (Hydrochlorothiazide 25 Mg Tab) 25 mg PO DAILY [facility] Last Admin: 03/04/22 08:14 Dose: 25 mg Sodium Chloride (Ns 1000 Ml Ivbag) 1,000 mls @ 75 mls/hr IV .[id number] [facility] Last Admin: 03/04/22 01:19 Dose: 1,000 mls Cefepime HCl 1 gm/ Sodium (Chloride) 100 mls @ 200 mls/hr IV DAILY [facility]; Protocol Last Admin: 03/04/22 08:16 Dose: 100 mls Levothyroxine Sodium (Levothyroxine Sod 0.025 Mg Tab) 0.025 mg PO DAILY [facility] Last Admin: 03/04/22 08:14 Dose: 0.025 mg Losartan Potassium (Losartan Potassium 50 Mg Tablet) 100 mg PO DAILY [facility] Last Admin: 03/04/22 08:14 Dose: 100 mg Magnesium Oxide (Magnesium Oxide 400 Mg Tab) 400 mg PO DAILY [facility] Last Admin: 03/04/22 08:15 Dose: 400 mg Melatonin (Melatonin 3 Mg Tablet) 3 mg PO BEDTIME PRN PRN PRN Reason: INSOMNIA Last Admin: 03/03/22 21:54 Dose: 3 mg Metronidazole (Metronidazole 500 Mg Tablet) 500 mg PO TID [facility] Last Admin: 03/04/22 08:15 Dose: 500 mg Ondansetron HCl (Ondansetron 4 Mg/2 Ml Vial) 4 mg IV Q6HP PRN PRN Reason: NAUSEA / VOMITING Last Admin: 03/03/22 21:37 Dose: 4 mg Potassium Chloride (Potassium Cl Sa 10 Meq Tab) 40 meq PO DAILY [facility] Last Admin: 03/04/22 08:14 Dose: 40 meq Sodium Chloride (Flush Normal Saline 10 Ml) 10 ml IV BID [facility] Last Admin: 03/04/22 08:15 Dose: 10 ml Zinc Sulfate (Zinc Sulfate 220 Mg Cap) 220 mg PO DAILY [facility] Last Admin: 03/04/22 08:14 Dose: 220 mg Microbiology 02/28/22 15:28 Clean Catch Urine [place] Count - Final >100,000 CFU/ML. 02/28/22 15:28 Clean Catch Urine - Final Escherichia Coli 02/28/22 12:28 Blood - Blood Aerobic Blood Culture - Final Escherichia Coli 02/28/22 12:28 Blood - Blood Blood Culture Gram Stain - Final 02/28/22 12:28 Blood - Blood Anaerobic Blood Culture - Final Escherichia Coli 02/28/22 12:28 Blood - Blood Gram Stain - Final Imagings Data: 02/28 CT Abd/Pel: IMPRESSION: 1. Distended bladder. Consider Earl catheter placement if urinary retention suspected. Left perinephric stranding noted without renal or ureteral calculi. This could represent in ascending urinary tract infection. 2. Distended small bowel in the central abdomen and right lower quadrant. This could reflect enteritis however cannot exclude an early small bowel obstruction Assessment And Plan - Current Problems (Diagnosis) (1) Bacteremia Status: Acute Plan: Culture: 02/28 UC: Positive E. Coli (Multi-drug Resistant) 02/28 BC: Positive E. Coli (Multi-drug Resistant) 02/28 COVIC-19: Positive 02/28 and BC: Negative Antibiotics: - IV Cefepime 03/02 to present - PO Metronidazole: 03/01 to present - Recommendation: 1. Can switch Cefepime to PO Levofloxacin when discharge and complete Metronidazole (2) Urinary tract infection Status: Acute Plan: Treatment same as bacteremia - Plan - Sepsis - Acute cystitis without hematuria - Enteritis - Acute renal failure - COVID-19 virus infection - Acute respiratory failure with hypoxemia - Chronic anemia - Thrombocytopenia ID will monitoring the patient closely for signs of infections with fever and trends Case has been discussed with Dr. Bryant, N
[2022-03-04] MEDS ORDERED: CEFEPIME 1 GM in NA CHLORIDE 0.9% 100 ML IV ONE (10:00)
[2022-03-04 10:33] VITALS: O2SAT 97
[2022-03-04] MEDS ORDERED: levoFLOXacin 750 MG TAB PO SCH (12:00)
--- NOTE | 2022-03-04 14:22 | P.DS ---
Admission Date: 02/28/22 Discharge Date: 03/04/22 Primary Care Provider: Olimpia Disposition: DC HOME/HOME HEALTH CARE Discharge Condition: FAIR Reason for Admission: UTI/Sepsis - Problems (1) Sepsis Current Visit: Yes Status: Acute (2) Acute cystitis without hematuria Current Visit: Yes Status: Acute (3) Enteritis Current Visit: Yes Status: Acute (4) Acute renal failure Current Visit: Yes Status: Acute (5) COVID-19 virus infection Current Visit: Yes Status: Acute (6) Acute respiratory failure with hypoxemia Current Visit: Yes Status: Acute (7) Chronic anemia Current Visit: Yes Status: Acute (8) Thrombocytopenia Current Visit: Yes Status: Acute Brief History of Present Illness: 65-year-old female with past medical history of hypertension hyperlipidemia, CAD with stents hypothyroidism. Patient presented to the hospital with complaints o f nausea vomiting and left flank pain. She was released from [facility] 2 days prior with a diagnosis of COVID. She thought her symptoms were related to her having COVID. Per patient's daughter, she reported that her mother had cloudy urine with mild odor. She also reported that her mother's blood pressure was low. She also reported decreased appetite. Additional associated symptoms of fatigue malaise fever chills. In the ER, patient's lab were significant for hypokalemia with a potassium of 2.9, creatinine of 1.57 BUN of 28 lactic of 3. Her liver enzymes were also elevated AST of 186 ALT of 143 and total bili of 1.4. Patient was admitted for further management. Hospital Course: Patient initially started on IV Rocephin. Blood cultures and urine culture are grew pansensitive E. coli. Repeat blood culture: Showed no growth to date. Patient was treated with IV cefepime. Patient seen by infectious disease who recommended 2 weeks of antibiotics for the E. coli bacteremia Dr. Bryant recommended oral Levaquin as outpatient Noted patient was hospitalized for COVID-19 for about 10 days. She still tested positive on presentation and placed on isolation. She is maintained on 2 L oxygen by nasal cannula. Patient was discharged to home from [facility] with oxygen. She tolerated her diet and had good oral intake. She had acute renal failure which resolved with IV fluid. Noted anemia and thrombocytopenia which were stable. Patient clinically improved and deemed stable for discharge. Patient needed support with ambulation and transfer. She is discharged with home health for PT and chcf. Vital Signs/Physical Exam: Temp Pulse Resp BP Pulse Ox 97.0 F 115 H 18 157/78 H 94 03/04/22 12:00 03/04/22 12:00 03/04/22 12:00 03/04/22 12:00 03/04/22 12:00 General: Alert, In no apparent distress, Oriented x3 HEENT: Mucous membr. moist/pink Neck: JVD not distended Respiratory: Clear to auscultation bilaterally, Normal air movement Cardiovascular: Regular rate/rhythm, Normal S1 S2 Gastrointestinal: Normal bowel sounds, Soft and benign, Non-distended, No tenderness Musculoskeletal: No swelling, No tenderness Integumentary: No rashes Neurological: Normal strength at 5/5 x4 extr Laboratory Data at Discharge: WBC 5.50 K/uL (4.3-10.9) 03/04/22 04:34 Hgb 10.5 g/dL (12.0-15.0) L 03/04/22 04:34 Hct 31.0 % (36.0-45.0) L 03/04/22 04:34 Plt Count 124 K/uL (152-406) L 03/04/22 04:34 PT 14.1 SECONDS (9.5-12.5) H 02/28/22 13:05 INR 1.28 02/28/22 13:05 APTT 29.5 SECONDS (24.3-36.9) 02/28/22 13:05 Sodium 140 mmol/L (136-145) 03/04/22 04:34 Potassium 4.2 mmol/L (3.5-5.1) D 03/04/22 04:34 BUN 13 mg/dL (7-18) 03/04/22 04:34 Creatinine 0.77 mg/dL (0.55-1.02) 03/04/22 04:34 Glucose 112 mg/dL (74-106) H 03/04/22 04:34 Phosphorus 2.9 mg/dL (2.5-4.9) 03/01/22 04:35 Magnesium 2.0 mg/dL (1.6-2.4) 03/01/22 04:35 Total Bilirubin 1.4 mg/dL (0.2-1.0) H 02/28/22 13:05 AST 186 U/L (15-37) H 02/28/22 13:05 ALT 143 U/L (13-56) H 02/28/22 13:05 Alkaline Phosphatase 110 U/L (45-117) 02/28/22 13:05 Home Medications: Amitriptyline [Elavil*] 25 mg PO DAILY 03/01/22 Ascorbic Acid [Vitamin C*] 500 mg PO BID 03/01/22 Aspirin Chewable [Aspirin Chewable*] 81 mg PO DAILY 03/01/22 Cholecalciferol (Vitamin D3) [Vitamin D3] 1,000 unit PO DAILY 03/01/22 Clopidogrel Bisulfate [Plavix*] 75 mg PO DAILY 03/01/22 Levothyroxine Sodium [Levothyroxine] 25 mcg PO DAILY 03/01/22 Losartan/Hydrochlorothiazide [Losartan-Hctz 100-25 mg Tab] 1 tab PO DAILY 03/01/22 Lovastatin 40 mg PO DAILY 03/01/22 Magnesium Oxide [Magnesium] 400 mg PO DAILY 03/01/22 Nitroglycerin [Nitrostat*] 0.4 mg SL PRN PRN 03/01/22 Potassium Chloride 40 meq PO DAILY 03/01/22 Zinc Gluconate [Zinc] 50 mg PO DAILY 03/01/22 Metronidazole 500 mg PO TID #6 tab 03/04/22 levoFLOXacin [Levaquin*] 750 mg PO DAILY #13 tab 03/04/22 New Medications: levoFLOXacin [Levaquin*] 750 mg PO DAILY #13 tab Metronidazole 500 mg PO TID #6 tab Diet: AHA Activity: Ad dominga Followup: Melani Pedro FNP [Primary Care Provider] - 1-2 Weeks Time spent managing pt's care (in minutes): 37
[2022-03-04 20:52] VITALS: BP 141/67; TEMP 98.6
[2022-03-04] MEDS ORDERED: CEFEPIME 2 GM in NA CHLORIDE 0.9% 100 ML IV SCH (21:00)
--- NOTE | 2022-03-05 10:20 | PN ---
Subjective: Patient lying in bed. No new acute event. Continue to have some cough. Denies any [address] pain, abdominal pain, constipation, or diarrhea. Objective: Vital Signs: Temperature 98, pulse 83, respirations 18, blood pressure 137/71. Lungs: Basal crackles. Heart: S1, S2. Regular. Abdomen: Soft, nontender. Bowel sounds present. Extremities: No edema. Laboratory Data: Shows WBC 8.6, hemoglobin 10.1, platelets 117, BUN 21, creatinine 1. Micro data gr owing urine culture E coli, and blood culture E coli. Patient currently on cefepime, Flagyl. Assessment And Plan: Bacteremia secondary to Escherichia coli and urinary tract infection secondary to Escherichia coli, sensitive to cefepime. Leukocytosis, improving. Enteritis. Anemia of chronic disease. Moderate protein-calorie malnourishment. Renal insufficiency, improving. Recent COVID inf ection. We will follow the patient closely. NF/MODL Voice ID: [id number] Report ID: [id number]
== END 2022-03-04 17:32 | disposition home health service (06) | DRG 871 ==
LOC: ER 11:46 → ERHOLD 16:58 → 2ND 19:31
PROVIDERS: ADMIT Internal Medicine; ATTEND Internal Medicine
DX: A41.51 Sepsis due to Escherichia coli [E. coli] (principal); J96.01 Acute respiratory failure with hypoxia; U07.1 COVID-19; E87.20 Acidosis, unspecified; Z16.24 Resistance to multiple antibiotics; N30.00 Acute cystitis without hematuria; N17.9 Acute kidney failure, unspecified; R65.20 Severe sepsis without septic shock; K52.9 Noninfective gastroenteritis and colitis, unspecified; D64.9 Anemia, unspecified; D69.6 Thrombocytopenia, unspecified
CPT/HCPCS: 36415; 51702; 71045; 74176; 80048; 80053; 81003; 81015; 82947; 83605; 83735; 84100; 85025; 85610; 85730; 87040; 87077; 87086; 87088; 87186; 87205; 87811; 93005; 96365; 96366; 96375; 99285; J0692; J1650; J2405; J7030

== ENCOUNTER 2023-11-17 11:49 | Emergency (ER) | payer OTHER, MEDICARE ==
--- NOTE | 2023-11-17 13:01 | RAD REPORT ---
Exam:Pelvis CLINICAL HISTORY: Pelvic pain FINDINGS: The bones are osteoporotic No fracture or dislocation seen If the patient continues to have symptoms to suggest an occult fracture then MRI would be recommended .
--- NOTE | 2023-11-17 13:01 | RAD REPORT ---
Exam:Hip Left 2 View HISTORY: Left hip pain FINDINGS: The bones are osteoporotic No fracture or dislocation seen If the patient continues to have symptoms to suggest an occult fracture then MRI would be recommended .
--- NOTE | 2023-11-17 13:09 | RAD REPORT ---
EXAM: CT brain without contrast HISTORY: fall COMPARISON: None TECHNIQUE: Multiple contiguous axial images were obtained and a CT of the brain without contrast. Sag ittal and coronal reformats were performed. FINDINGS: No evidence of hydrocephalus, intracranial hemorrhage, or extra-axial fluid collection. The brain is normal in morphology. The calvarium is intact. The visualized paranasal sinuses and mastoid air cells are essentially clear . IMPRESSION: No evidence of acute intracranial abnormality. EXAM: CT of the cervical spine without contrast HISTORY: fall COMPARISON: None TECHNIQUE: Multiple contiguous axial images were obtained in a CT of the cervical spine without contr ast. Sagittal and coronal reformats were performed. FINDINGS: The vertebral bodies demonstrate normal height and alignment. No evidence of acute fracture or sublux ation.. Mild multilevel degenerative changes are present, with disc height loss at C5-6 and to lesser degree at C3-4. No prevertebral soft tissue swelling is seen. The posterior facets are well aligned. Normal alignment of the skull base with the cervical spine is seen. The lung apices are unremarkable. IMPRESSION: No evidence of acute osseous abnormality of the cervical spine. Multilevel mild cervical spine degene rative changes as above.
[2023-11-17 13:50] LABS: Absolute Eosinophils 0.1 K/uL (0-0.5); Absolute Lymphocytes (CBC) 1.5 K/uL (0.7-4.9); Absolute Monocytes 0.5 K/uL (0.1-1.3); Absolute Neutrophil 3.7 K/uL (1.8-8.0); Basophils % 0.7 % (0-1.3); Eosinophils % 1.8 % (0-4.4); Hematocrit 35.9 % (36.0-45.0); Hemoglobin 12.3 g/dL (12.0-15.0); Lymphocytes % 26.4 % (15.3-44.8); MCH 33.2 pg (27.0-35.0); MCHC 34.2 g/dL (32.0-36.0); MCV 97.2 fL (80-100); MPV 6.2 fL (7.6-11.3); Monocytes % 8.5 % (3.3-12.3); Neutrophils % 62.6 % (41.7-73.7); Platelets 152 thou/uL (152-406); Red Cell Distribution Width 13.6 % (12.1-15.2)
[2023-11-17 13:57] LABS: Anion Gap 4.8 mEq/L (5.0-15.0)
[2023-11-17 13:58] LABS: Potassium 3.8 mEq/L (3.5-5.1)
--- NOTE | 2023-11-17 14:34 | ER ---
Nurse's Notes [facility] Name: Hina Meyers Age: 78 yrs Sex: Female : 1945 Arrival Date: 11/17/2023 Time: 11:49 Bed 6 Private MD: Diagnosis: Fall on same level, unspecified;Pain in left hip;UTI/ Urinary tract infection, site not specified Presentation: 11/16 11:49 Chief complaint: EMS states: PATIENT WAS OUTSIDE LOST BALANCE AND FELL BACK AND HIT db BACK OF HEAD. UNKNOWN LOC AND UNKNOWN HOW LONG WAS ON GROUND. UNWITNESSED FALL. PT COMPLAINS OF SACRAL PAIN. Coronavirus screen: Client denies travel out of the [place] in the last 14 days. At this time, the client does not indicate any symptoms associated with coronavirus-19. Ebola Screen: Patient negative for fever greater than or equal to 101.5 degrees Fahrenheit, and additional compatible Ebola Virus Disease symptoms Patient denies exposure to infectious person. Patient denies travel to an Ebola-affected area in the 21 days before illness onset. No symptoms or risks identified at this time. Initial Sepsis Screen: Does the patient meet any 2 criteria? No. Patient's initial sepsis screen is negative. Does the patient have a suspected source of infection? No. Patient's initial sepsis screen is negative. Risk Assessment: Do you want to hurt yourself or someone else? Patient reports no desire to harm self or others. Onset of symptoms was November 17, 2023. Care prior to arrival: IV initiated. 20 GA, in the right antecubital area, Glucose check: 138. 11:49 Method Of Arrival: EMS: [facility] db 11:49 Acuity: MELE 3 db 12:30 Mechanism of Injury: Fall from standing position. Trauma event details: Injury occurred db in the [facility]. Trauma Activation: Not Applicable Physician: ED Physician; Name: ; Notified At: ; Arrived At: Physician: General Surgeon; Name: ; Notified At: ; Arrived At: Physician: Radiology; Name: ; Notified At: ; Arrived At: Physician: Respiratory; Name: ; Notified At: ; Arrived At: Physician: Lab; Name: ; Notified At: ; Arrived At: Historical: - Allergies: 11:49 Codeine; db - PMHx: 11:49 Hypercholesterolemia; CAD; Hypertensive disorder; Hypothyroidism; LBBB; db - PSHx: 12:07 CARDIAC STENT; db - Immunization history:: Adult Immunizations unknown. - Infectious Disease History:: Denies. - Immunization history: Last tetanus immunization: unknown. - Social history:: Smoking status: Patient denies any tobacco usage or history of. Screenin:15 [facility] ED Fall Risk Assessment (Adult) History of falling in the last 3 months, db including since admission Yes- single mechanical fall (1 pt) Confusion or Disorientation No (0 pts) Intoxicated or Sedated No (0 pts) Impaired Gait No (0 pts) Mobility Assist Device Used No (0 pt) Altered Elimination No (0 pt) Score/Fall Risk Level 0 - 2 = Low Risk Oriented to surroundings, Maintained a safe environment. Abuse screen: Denies threats or abuse. Denies injuries from another. Nutritional screening: No deficits noted. Tuberculosis screening: No symptoms or risk factors identified. Primary Survey: 12:30 NO uncontrolled hemorrhage observed. A: The client is awake and alert. The airway is db patent. The client is alert. Airway: patent, No supplemental oxygen in use on arrival. Breathing/Chest: Spontaneous respiratory effort, equal unlabored respirations, breath sounds clear bilaterally, regular pattern, symmetrical chest rise and fall. Respiratory effort: spontaneous, unlabored. Circulation: No external hemorrhage present. Regular and strong central pulse, skin warm/dry/normal color. Disability Client is alert. Exposure/Environment: A warming method has been applied: A warm blanket has been provided to the patient. Reassessment Alertness and Airway: Awake and alert. The airway is patent. Breathing: Spontaneous respiratory effort, equal unlabored respirations, breath sounds clear bilaterally, regular pattern with symmetrical chest rise and fall. Circulation: No external hemorrhage noted. Regular and strong central pulse, skin warm/dry/normal color. Disability: Alert. Assessment: 12:30 Reassessment: Patient appears in no apparent distress at this time. Patient and/or db family updated on plan of care and expected duration. Pain level reassessed. Patient is alert, oriented x 3, equal unlabored respirations, skin warm/dry/pink. General: Appears in no apparent distress. comfortable. Pain: Complains of pain in buttocks. Neuro: Level of Consciousness is awake, alert, obeys commands, Oriented to person, place, time, situation, Appropriate for age. 12:30 General: Appears in no apparent distress. comfortable, Behavior is calm, cooperative. db 13:00 Reassessment: Patient appears in no apparent distress at this time. Patient and/or db family updated on plan of care and expected duration. Pain level reassessed. Patient is alert, oriented x 3, equal unlabored respirations, skin warm/dry/pink. 14:00 Reassessment: Patient appears in no apparent distress at this time. Patient and/or db family updated on plan of care and expected duration. Pain level reassessed. Patient is alert, oriented x 3, equal unlabored respirations, skin warm/dry/pink. 14:30 Reassessment: Pt assisted to bedside commode, tolerated well. . aa5 14:30 Reassessment: Pt ambulated with assistance per MD TURK, pt tolerated well, pt states "I aa5 have a walker at home that I can use". . 15:00 Reassessment: Patient appears in no apparent distress at this time. Patient and/or db family updated on plan of care and expected duration. Pain level reassessed. Patient is alert, oriented x 3, equal unlabored respirations, skin warm/dry/pink. 15:00 Reassessment: Awaiting urine results before d/c home. Pt concerned about possible UTI. .aa5 Vital Signs: 11:49 BP 159 / 69; Pulse 62; Resp 18; Temp 98.4(O); Pulse Ox 100% ; Weight 74.39 kg; Height 5 db ft. 3 in. ; Pain 4/10; 13:00 BP 159 / 69; Pulse 61; Resp 18; Pulse Ox 99% on R/A; db 16:00 BP 159 / 72; Pulse 61; Resp 18; Pulse Ox 100% on R/A; db 11:49 Body Mass Index 29.05 (74.39 kg, 160.02 cm) db 11:49 Pain Scale: Adult db [place]ie Coma Score: 12:30 Eye Response: spontaneous(4). Motor Response: obeys commands(6). Verbal Response: db oriented(5). Total: 15. Trauma Score (Adult): 12:30 Eye Response: spontaneous(1); Verbal Response: oriented(1); Motor Response: obeys db commands(2); Systolic BP: > 89 mm Hg(4); Respiratory Rate: 10 to 29 per min(4); [place] Score: 15; Trauma Score: 12 ED Course: 11:49 Arm band placed on Patient placed in an exam room. db 11:57 Patient arrived in ED. db 11:58 Damien Celeste DO is Attending Physician. ms3 12:05 Isela Hill, RN is Primary Nurse. db 12:07 Triage completed. db 12:22 CT Head C Spine In Process Unspecified. EDMS 12:30 Oxygen administration via nasal cannula. db 12:54 XRAY Pelvis In Process Unspecified. EDMS 12:54 Hip Left 2 View XRAY In Process Unspecified. EDMS 14:33 Harry Marrufo MD is Referral Physician. ms3 15:00 Patient has correct armband on for positive identification. Placed in gown. Bed in low db position. Call light in reach. Side rails up X 1. Provided Education on: LABS. Client placed on continuous cardiac and pulse oximetry monitoring. NIBP monitoring applied. alarm security or surveillance monitor on. Pulse ox on. NIBP on. Warm blanket given. Pillow given. 16:15 No provider procedures requiring assistance completed. IV discontinued, intact, db bleeding controlled, No redness/swelling at site. Administered Medications: No medications were administered Medication: 14:15 VIS not applicable for this client. db Output: 12:30 Other: 2; Total: 0ml. db Outcome: 14:34 Discharge ordered by . ms3 16:15 Discharged to home via wheelchair, with family, db 16:15 Condition: stable 16:15 Discharge instructions given to patient, Instructed on discharge instructions, follow up and referral plans. Prescriptions given X 1, 16:17 Patient left the ED. aa5 Signatures: Dispatcher [employer] EDMS Jerrica Cuellar, RN RN aa5 Damien Celeste DO DO ms3 Isela Hill, RN RN db
--- NOTE | 2023-11-17 14:34 | EDPHYS ---
Physician Documentation [facility] Name: Hina Meyers Age: 78 yrs Sex: Female : 1945 Arrival Date: 11/17/2023 Time: 11:49 Bed 6 Private MD: ED Physician Damien Celeste HPI: 11/16 14:24 This 78 yrs old Female presents to ER via EMS with complaints of Fall Injury. ms3 14:24 78-year-old female past medical history of hypercholesterolemia, coronary artery ms3 disease, hypertension, hypothyroidism, left bundle branch block presents to the emergency department status post fall. Patient states she bent over to shake out her rugs and fell. Patient states she did hit her head and is on Plavix. Patient also notes she is having left hip pain.. Historical: - Allergies: 11:49 Codeine; db - PMHx: 11:49 Hypercholesterolemia; CAD; Hypertensive disorder; Hypothyroidism; LBBB; db - PSHx: 12:07 CARDIAC STENT; db - Immunization history:: Adult Immunizations unknown. - Infectious Disease History:: Denies. - Immunization history: Last tetanus immunization: unknown. - Social history:: Smoking status: Patient denies any tobacco usage or history of. ROS: 14:24 Constitutional: Negative for fever, and chills. Cardiovascular: Negative for chest ms3 pain, and palpitations. Respiratory: Negative for shortness of breath, cough, wheezing, and pleuritic chest pain, Abdomen/GI: Negative for abdominal pain, nausea, vomiting, diarrhea, and constipation, 14:24 MS/extremity: Positive for Left hip pain, Exam: 14:24 Constitutional: This is a well developed, well nourished patient who is awake, alert, ms3 and in no acute distress. Neck: Trachea midline, no cervical lymphadenopathy. Supple, full range of motion without nuchal rigidity, or vertebral point tenderness. No Meningismus. Cardiovascular: Regular rate and rhythm with a normal S1 and S2. No gallops, murmurs, or rubs. Normal PMI, no JVD. No pulse deficits. Respiratory: Lungs have equal breath sounds bilaterally, clear to auscultation and percussion. No rales, rhonchi or wheezes noted. No increased work of breathing, no retractions or nasal flaring. Abdomen/GI: Soft, non-tender, with normal bowel sounds. No distension or tympany. No guarding or rebound. No evidence of tenderness throughout. Skin: Warm, dry with normal turgor. Normal color with no rashes, no lesions, and no evidence of cellulitis. MS/ Extremity: Pulses equal, no cyanosis. Neurovascular intact. Full, normal range of motion. Vital Signs: 11:49 BP 159 / 69; Pulse 62; Resp 18; Temp 98.4(O); Pulse Ox 100% ; Weight 74.39 kg; Height 5 db ft. 3 in. ; Pain 4/10; 13:00 BP 159 / 69; Pulse 61; Resp 18; Pulse Ox 99% on R/A; db 16:00 BP 159 / 72; Pulse 61; Resp 18; Pulse Ox 100% on R/A; db 11:49 Body Mass Index 29.05 (74.39 kg, 160.02 cm) db 11:49 Pain Scale: Adult db [place] Coma Score: 12:30 Eye Response: spontaneous(4). Motor Response: obeys commands(6). Verbal Response: db oriented(5). Total: 15. Trauma Score (Adult): 12:30 Eye Response: spontaneous(1); Verbal Response: oriented(1); Motor Response: obeys db commands(2); Systolic BP: > 89 mm Hg(4); Respiratory Rate: 10 to 29 per min(4); [place] Score: 15; Trauma Score: 12 MDM: 12:13 Patient medically screened. ms3 14:24 Differential diagnosis: closed head injury, fracture, sprain, strain. ms3 14:34 Data reviewed: vital signs, nurses notes, lab test result(s), radiologic studies, and ms3 as a result, I will discharge patient. Independent interpretation of the following test(s) in the Emergency Department X-Ray: My interpretation is Left hip x-ray images reviewed by me do not reveal fracture. Historians other than the Patient: EMS: [facility]. Counseling: I had a detailed discussion with the patient and/or guardian regarding the historical points, exam findings, and any diagnostic results supporting the discharge/admit diagnosis, lab results, radiology results, the need for outpatient follow up, to return to the emergency department if symptoms worsen or persist or if there are any questions or concerns that arise at home. Special discussion: I discussed with the patient/guardian in detail that at this point there is no indication for admission to the hospital. It is understood, however, that if the symptoms persist or worsen the patient needs to return immediately for re-evaluation. ED course: Discussed x-ray results with patient and her daughter. Patient to follow-up with primary care physician 2 to 3 days. Patient understands agrees with plan. All questions were answered. Return precautions discussed include worsening symptoms, or any other concerns. 15:55 ED course: UA reveals UTI. Rx for Vantin given.. ms3 11/16 12:11 Order name: Basic Metabolic Panel; Complete Time: 14:16 ms3 11/16 12:11 Order name: CBC with Diff; Complete Time: 14:16 ms3 11/16 14:37 Order name: Urinalysis w/ reflexes; Complete Time: 15:36 ms3 11/16 15:11 Order name: Urine Culture EDMS 11/16 12:11 Order name: CT Head C Spine; Complete Time: 13:13 ms3 11/16 12:11 Order name: XRAY Pelvis; Complete Time: 13:13 ms3 11/16 12:11 Order name: Hip Left 2 View XRAY; Complete Time: 13:13 ms3 11/16 12:11 Order name: Labs collected and sent; Complete Time: 13:43 ms3 Administered Medications: No medications were administered Disposition Summary: 11/17/23 14:34 Discharge Ordered Notes: Location: Home ms3 Condition: Stable ms3 Diagnosis - Fall on same level, unspecified ms3 - Pain in left hip ms3 - UTI/ Urinary tract infection, site not specified ms3 Followup: ms3 - With: Harry Marrufo MD - When: 2 - 3 days - Reason: Recheck today's complaints Discharge Instructions: - Discharge Summary Sheet ms3 - Musculoskeletal Pain ms3 - Urinary Tract Infection, Adult ms3 - Hip Pain ms3 Forms: - Medication Reconciliation Form ms3 - Antibiotic Education ms3 - Prescription Opioid Use ms3 - Patient Portal Instructions ms3 - Leadership Thank You Letter ms3 Prescriptions: - cefpodoxime 200 mg Oral tablet - take 1 tablet ORAL route every 12 hours with food; 20 tablet; Refills: 0, ms3 Product Selection Permitted Signatures: [facility] Damien Celeste DO DO ms3 Hill, Isela, RN RN db Corrections: (The following items were deleted from the chart) 12:12 12:12 BASIC METABOLIC PANEL+C.LAB.BRZ ordered. EDMS EDMS 12:12 12:12 CBC+H.LAB.BRZ ordered. EDMS EDMS 12:12 12:12 Head C Spine MPR Wo Con+CT.RAD.BRZ ordered. EDMS EDMS 12:12 12:12 Pelvis+RAD.RAD.BRZ ordered. EDMS EDMS 12:12 12:12 Hip Left 2 View+RAD.RAD.BRZ ordered. EDMS EDMS 14:38 14:38 Urinalysis+U.LAB.BRZ ordered. EDMS EDMS
[2023-11-17 15:07] LABS: Specific Gravity 1.006 (1.005-1.030); Sqamous Epithelial <5 /HPF (None Seen); Urine Bacteria <20 /HPF (<20); Urine Bilirubin NEGATIVE (Negative); Urine Blood Negative (Negative); Urine Clarity Extremely Turbid (Clear); Urine Color Light-Yellow (Yellow); Urine Culture Reflex Order REFLEXED; Urine Glucose NEGATIVE (Negative); Urine Ketones NEGATIVE (Negative); Urine Microscopic Reflex YN ORDER UMIC; Urine Nitrite NEGATIVE (Negative); Urine Protein NEGATIVE (Negative); Urine Urobilinogen Normal (Normal); Urine WBC >50 /HPF (<5); Urine WBC Clump Rare /HPF (None Seen); Urine pH 7.5 (5.0-7.0)
[2023-11-17 16:28] VITALS: TEMP 98.4
[2023-11-17 16:31] VITALS: BP 159/72; O2SAT 100
== END 2023-11-17 16:17 | disposition home or self-care (01) ==
LOC: ER 11:49
DX: M25.552 Pain in left hip (principal); N39.0 Urinary tract infection, site not specified; W18.30XA Fall on same level, unspecified, initial encounter; Z95.818 Presence of other cardiac implants and grafts
CPT/HCPCS: 36415; 70450; 72125; 72170; 80048; 81001; 85025; 87086; 87088; 99285